=== PATIENT | female | born 1945 | race Caucasian/White ===

== ENCOUNTER 2023-12-22 13:17 | Observation (INO) | payer MEDICARE, SELFPAY ==
[2023-12-22] VITALS (19 sets, daily range): BP systolic 96–143; BP diastolic 52–90; PULSE 44–76; RESP 11–19; TEMP 36.7–37.2; O2SAT 94–99; BMI 32.4; BMI 31.8
--- NOTE | 2023-12-22 13:59 | EKG12_ITS ---
Test Reason : JACKELYN Blood Pressure : / mmHG Vent. Rate : 058 BPM Atrial Rate : 000 BPM P-R Int : 000 ms QRS Dur : 090 ms QT Int : 404 ms P-R-T Axes : 000 002 014 degrees QTc Int : 396 ms Junctional rhythm with Premature supraventricular complexes Nonspecific ST and T wave abnormality Abnormal ECG Confirmed by RAN ZENG, MARIETTA ([id number]), marketing editor HILARIA CORONADO ([id number]) on 12/25/2023 6:38:23 AM Referred By: ILAN Confirmed By:GRACIELA TONG MD
--- NOTE | 2023-12-22 14:05 | RAD_ITS ---
STUDY: X-RAY CHEST REASON FOR EXAM: Female, 78 years old. Chest pain TECHNIQUE: Single AP portable view of the chest. COMPARISON: None. FINDINGS: EKG electrodes are seen. There is elevation of the right hemidiaphragm. The lungs are clear. There is no demonstrated pleural abnormality. Normal size heart. Calcified bilateral hilar lymph nodes. Normal visualized pulmonary arteries. There is atherosclerotic tortuosity of the aortic arch and descending thoracic aorta. There are diffuse degenerative changes of the visualized thoracic spine. Normal visualized ribs, clavicles, and shoulders. There is no demonstrated abnormality of the visualized soft tissue structures of the upper abdomen. RAD/Chest 1 View (Portable) IMPRESSION: No acute abnormality is seen. Electronically Signed: Laron Rosado MD at 15:04 EDT ,
[2023-12-22 14:08] LABS: Absolute Lymphocyte Count 1.33 X10^3/uL (0.83-4.51); Absolute Neutrophil Count 6.8 X10^3/uL (2.0-7.7); Basophil# 0.06 X10^3/uL; Basophil% 0.7 % (0-1); Eosinophil# 0.12 X10^3/uL; Eosinophils% 1.3 % (0-5); Hematocrit 38.6 % (37-47); Hemoglobin 12.6 g/dL (12.0-15.0); Lymphocyte # 1.33 X10^3/ul (0.83-4.51); Lymphocyte % 14.8 % (19-41); Mean Corp Hgb Conc 32.6 g/dL (32-36); Mean Corpuscular Volume 95.1 fL (81-99); Mean Platelet Vol. 11.7 fl (6.2-12.0); Monocyte# 0.62 X10^3/uL; Monocyte% 6.9 % (0-10); NRBC Flagged by Analyzer 0 % (0-5); Neutrophil # 6.81 X10^3/uL (2.7-7.7); Neutrophil % 75.7 % (47-70); Platelet Count 220 K/mm3 (150-450); RBC Distribution Width SD 45.1 fl (35.1-43.9); Red Blood Count 4.06 M/mm3 (4.2-5.4)
--- NOTE | 2023-12-22 14:21 | ED.VIS.CHEST ---
HPI History of Present Illness Chief Complaint: Chest Pain Informant: patient Onset/Context/Timing Onset: Today Activity at onset: sudden Timing: Continuous Quality: Positive for Pressure Location: Left Parasternal and - (Neck, right shoulder, right arm) Worsened By: Exertion Relieved By: Rest Associated Symptoms: Positive for Nausea, Dyspnea, Lightheadedness and Palpitations; Negative for Vomiting, Diaphoresis, Cough, Fever or Acid Reflux Narrative Narrative: Patient presents with chest pain that began today. Patient states she felt her heart was racing. Patient states she sat down and the racing stopped. Patient states that when she got up from a seated position, she started having some pressure to her left chest. Patient states she developed pain in her neck and right shoulder. Patient states it starts going down her right arm. Patient admits to some nausea and shortness of breath. Patient denies any vomiting. Patient states she felt lightheaded. Patient denies any fevers or chills. Patient denies any cough. Patient states her pain and pressure is worse with any walking or movement. 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 HTN (hypertension) Diabetes Home Medications ?Medication ?Instructions ?Recorded ?Last Taken ?Type lisinopril 20 1 tab PO DAILY 12/22/23 Unknown History mg-hydrochlorothiazide 12.5 mg tablet metoprolol succinate PO 12/22/23 Unknown History Allergy/AdvReac Type Severity Reaction Status Date / Time No Known Allergies Allergy Verified 12/22/23 13:21 Surgical History Hx of cholecystectomy H/O: hysterectomy Social History Smoking Status: Never smoker ROS ROS ED Constitutional Constitutional ED: Denies chills or fever(s) Eyes Eyes: Denies blurry vision or change in vision ENT ENT ED: Denies rhinorrhea or sore throat Cardiovascular Cardiovascular: Reports as per HPI, chest pain, palpitations and racing heartbeat Respiratory/Chest Respiratory/Chest: Reports dyspnea; Denies cough Gastrointestinal Gastrointestinal: Reports nausea; Denies vomiting Genitourinary Genitourinary ED: Denies dysuria or hematuria Musculoskeletal Musculoskeletal: Reports back pain and neck pain Integumentary Reports rash; Denies abscess Neurologic Neurologic: Reports headache(s) and weakness Allergic/Immunologic Allergic/Immunologic ED: Denies mouth swelling or urticaria EXAM Physical Exam Const Vital Signs: 12/22/23 13:17 12/22/23 13:24 12/22/23 14:00 Temperature 98.1 F Temperature Source Temporal Pulse Rate 51 L Respiratory Rate 14 Respiratory Effort Normal Non-Labored Blood Pressure 141/84 H 143/65 H Blood Pressure Mean 103 85 Pulse Ox 98 Oxygen Delivery Method Room Air 12/22/23 14:01 12/22/23 14:01 12/22/23 14:15 Temperature Temperature Source Pulse Rate 62 68 Respiratory Rate 17 13 Respiratory Effort Blood Pressure 123/90 H Blood Pressure Mean 99 Pulse Ox 97 95 98 Oxygen Delivery Method Room Air 12/22/23 14:17 12/22/23 14:30 12/22/23 14:38 Temperature Temperature Source Pulse Rate 60 56 L 52 L Respiratory Rate 12 14 Respiratory Effort Blood Pressure 135/73 H 135/73 H 135/73 H Blood Pressure Mean 93 88 Pulse Ox 98 98 Oxygen Delivery Method 12/22/23 14:45 12/22/23 15:00 12/22/23 15:00 Temperature Temperature Source Pulse Rate 65 60 48 L Respiratory Rate 14 12 12 Respiratory Effort Blood Pressure 103/53 L 96/63 96/63 Blood Pressure Mean 69 74 75 Pulse Ox 97 98 97 Oxygen Delivery Method 12/22/23 15:16 12/22/23 15:32 12/22/23 15:45 Temperature Temperature Source Pulse Rate 48 L 47 L 51 L Respiratory Rate 19 H 15 11 L Respiratory Effort Blood Pressure 109/78 100/58 L 119/70 Blood Pressure Mean 89 72 85 Pulse Ox 97 98 Oxygen Delivery Method 12/22/23 16:00 12/22/23 17:00 12/22/23 18:00 Temperature Temperature Source Pulse Rate 48 L 59 L 44 L Respiratory Rate 16 19 H 16 Respiratory Effort Blood Pressure 119/70 123/72 H 109/68 Blood Pressure Mean 86 87 81 Pulse Ox 97 99 96 Oxygen Delivery Method Room Air Room Air Positive well nourished and well developed General Appearance ED: well developed HEENT Reports moist mucous membranes Neck supple and no JVD Resp normal respiratory effort and clear to auscultation bilaterally Cardio regular rate and regular rhythm Rhythm: abnormal rhythm ectopic beats GI soft to palpation, non-tender and non-distended Neuro oriented x3, CN's II-XII intact bilaterally and no sensory deficits noted Sensorium / Orientation: awake and alert Motor Exam: strength 5/5 throughout Psych mental status grossly normal Skin no rashes or lesions noted Heart Score History: Moderately Suspicious ECG: Nonspecific Repolarization Age: >/= 65 years Risk Factors: >/= 3 Risk Factors or History of CAD Troponin: </= Normal Limit Score: 6 MDM MDM MDM Narrative Medical decision making narrative: Differential diagnosis includes cardiac dysrhythmia, cardiac ischemia, pneumonia, pneumothorax, pulmonary embolism, electrolyte abnormality, musculoskeletal pain, and anxiety. EKG will be obtained to assess for cardiac dysrhythmia and cardiac ischemia. Chest x-ray will be obtained to assess for pneumonia and pneumothorax. CBC will be obtained to assess for leukocytosis and anemia. Basic metabolic profile will be obtained to assess for electrolyte abnormality and renal function. High-sensitivity troponin will be obtained to assess for cardiac ischemia. D-dimer will be obtained to assess for pulmonary embolism. 2-hour repeat high-sensitivity troponin will be obtained to assess for ongoing cardiac ischemia. Lab Data Attestation: I reviewed the patient's lab results. Lab results narrative: CBC was reviewed and was within normal limits. Basic metabolic profile was reviewed. BUN was slightly elevated at 27. The remainder was within normal limits. Initial high-sensitivity troponin was reviewed and was normal at 39. D-dimer was reviewed and was elevated at 0.93. 2-hour repeat high-sensitivity troponin was reviewed and was normal at 30. Labs: Laboratory Results - last 24 hr 12/22/23 12/22/23 12/22/23 13:20 14:25 16:15 WBC 9.0 RBC 4.06 L Hgb 12.6 Hct 38.6 MCV 95.1 MCH 31.0 MCHC 32.6 RDW Std Deviation 45.1 H RDW Coeff of Faisal 13.0 Plt Count 220 MPV 11.7 Immature Gran % (Auto) 0.600 Neut % (Auto) 75.7 H Lymph % (Auto) 14.8 L Andrews % (Auto) 6.9 Eos % (Auto) 1.3 Baso % (Auto) 0.7 Absolute Neuts (auto) 6.8 Absolute Lymphs (auto) 1.33 Nucleated RBC % 0 D-Dimer Quant (PE/DVT) 0.93 H* Sodium 137 Potassium 3.5 Chloride 104 Carbon Dioxide 27.0 Anion Gap 6 BUN 27 H Creatinine 1.00 Estim Creat Clear Calc 42.39 Est GFR (MDRD) Af Amer 69 Est GFR (MDRD) Non-Af 57 L BUN/Creatinine Ratio 27.1 H Glucose 111 H Calcium 10.2 H Troponin I High Sens 39 30 Radiography Chest X-Ray - ED: 1 View, Read by ED Physician, Read by Radiologist and No Acute Disease CTA PE Study: No Evidence of PE and No Evidence of Dissection Diagnostic Testing: Clinical Impression(s) from Imaging Studies Chest X-Ray 12/22/23 14:05 IMPRESSION: No acute abnormality is seen. Electronically Signed: aLron Rosado MD at 15:04 EDT , Chest CTA 12/22/23 15:41 IMPRESSION: 1. Negative CTA chest examination, without a demonstrated pulmonary embolism or arterial dissection. Electronically Signed: Nicholas Celeste MD at 16:21 EDT , Portable 1 view chest x-ray was obtained. On my independent interpretation, lung pedraza are clear. There is normal cardiac silhouette. Bony thorax is normal. There is no acute process noted. Radiologist also interpreted the x-ray and agrees. CT of the chest was obtained due to the elevated D-dimer. There is no evidence of pulmonary embolism or aortic dissection. There is no acute process noted. This was interpreted by the radiologist was also independently reviewed by myself. EKG Initial EKG: Attestation: I personally reviewed and interpreted this EKG as follows: Interpretation: Sinus Rhythm (With PACs with a rate of 58) and Non-Specific ST Changes Comments: EKG was obtained. On my independent interpretation, it shows a normal sinus rhythm with a rate of 58. There are PACs noted. TN interval, QRS interval, and QTc intervals are within normal limits. [place] is normal. There are nonspecific ST-T wave changes noted. Prior EKG tracings: not available for review Prior: No Prior Treatment and Re-Evaluation :: Patient was given aspirin and 1 sublingual nitroglycerin tablet. Patient states the nitroglycerin did not change her back pain at all. Patient was given a dose of fentanyl. Patient was advised of her findings. Patient has a HEART score of 6. Patient states she has not had a stress test or cardiac evaluation in probably 20 years. Because of this, I recommended admission to the hospital for further evaluation. Patient and family are agreeable with this. Case was discussed with the hospitalist. He will admit the patient for observation. Discharge Plan Triage Chief Complaint: Chest Pain ED Provider: Sonido Kraus Dx/Rx/DC Orders Clinical Impression: Chest pain, Hypertension, Low back pain Prescriptions: No Action lisinopril-hydrochlorothiazide 20-12.5 mg tablet 1 tab PO DAILY metoprolol succinate PO Primary Care Provider: Joel Casey Referrals: Joel Casey MD [Primary Care Provider] - Print Language: Amharic Disposition Disposition: Acute Care Hospital [facility]
[2023-12-22 14:25] LABS: Anion Gap 6 (5-15); BUN 27 mg/dL (7-18); BUN/Creat Ratio 27.1 RATIO (10-20); Calcium,Total 10.2 mg/dL (8.5-10.1); Chloride 104 mmol/L (98-107); EST Glomerular Filtration Rate 57 mL/min (>60); Est Glom Filt Rate - Afr Amer 69 mL/min (>60); Estimated Creatinine Clearance 42.39 ml/min; Glucose 111 mg/dL (74-106); Potassium 3.5 mmol/L (3.5-5.1); Sodium Level 137 mmol/L (136-145); Troponin-I HS (w/2H Reflex) 39 pg/mL (3.0-54.0)
[2023-12-22] MEDS: Aspirin 81 MG TAB.CHEW 324 MG PO (14:34)
[2023-12-22] MEDS: Nitroglycerin SL (ED/IMG/CATH) 0.4 MG TABLET SL (14:38)
[2023-12-22 14:54] LABS: D-Dimer Quantitative (DVT/PE) 0.93 FEU/ug/m (0.27-0.49)
--- NOTE | 2023-12-22 15:41 | CT_ITS ---
STUDY: CTA CHEST REASON FOR EXAM: Female, 78 years old. Elevated D-dimer RADIATION DOSAGE (If Supplied By Facility): CTDIvol = ( 11.15 ) mGy, DLP = ( 383.09 ) mGycm TECHNIQUE: The examination was performed with the intravenous administration of IV 100mL Isovue-370. Post-processing of the angiographic images was performed, with multiplanar reformation and 3D reconstruction. Individualized dose optimization techniques were used for this CT. COMPARISON: Chest x-ray dated December 22, 2023 FINDINGS: No consolidation or pleural effusion is present. Normal enhancement of the main pulmonary artery and right and left pulmonary arteries. Normal enhancement of the bilateral peripheral pulmonary arteries. There is no demonstrated pulmonary embolism. Normal thoracic aorta and visualized great vessels. There is no demonstrated aortic dissection. Normal heart and pericardium. There are calcifications of the coronary arteries. Normal mediastinum. Normal hilar regions. Normal visualized trachea and bronchi. The lungs are well expanded. Mild diffuse interstitial fibrosis/thickening is present throughout both lungs. Normal pleura. Normal chest wall structures. There are degenerative changes of thoracic spine. Included upper abdomen: Punctate calcifications are seen throughout the liver and spleen. The remaining structures are unremarkable. A small hiatal hernia is present. CT/CTA Chest W/WO Contrast IMPRESSION: 1. Negative CTA chest examination, without a demonstrated pulmonary embolism or arterial dissection. Electronically Signed: Nicholas Celeste MD at 16:21 EDT ,
[2023-12-22 16:04] LABS: Reflex Troponin-HS? (from REC) Y
[2023-12-22 16:53] LABS: Troponin-I HS 30 pg/mL (3.0-54.0)
[2023-12-22] MEDS: fentaNYL 100 MCG/2 ML Ampul 50 MCG IV (17:42)
--- NOTE | 2023-12-22 19:44 | EKG12_ITS ---
Test Reason : CP Blood Pressure : / mmHG Vent. Rate : 046 BPM Atrial Rate : 000 BPM P-R Int : 000 ms QRS Dur : 078 ms QT Int : 422 ms P-R-T Axes : 000 003 017 degrees QTc Int : 369 ms Junctional rhythm Abnormal ECG When compared with ECG of 22-DEC-2023 13:21, MANUAL COMPARISON REQUIRED, DATA IS UNCONFIRMED Confirmed by RAN ZENG, MARIETTA ([id number]), editor school photograph HILARIA CORONADO ([id number]) on 12/25/2023 7:19:43 AM Referred By: Confirmed By:GRACIELA TONG MD
--- NOTE | 2023-12-22 20:04 | HP.PCM.HOS_ITS ---
HPI - General General Date of Admission: 12/22/23 Date of Service: 12/22/23 Chief Complaint: Chest pain, neck pain right shoulder pain. HPI Narrative JOHNNY STUART, is a 78 F came to ED with ongoing pain for last couple days. She stated that she has not been feeling well since December 03. She had low-grade fever, muscle aches and pain felt like viral infection from December 03 to . After that, she also had right shoulder pain, neck pain and she attributes that she might have slept wrong or positional pain/musculoskeletal pain last 2-3. She denies chronic cervical radiculitis/myelopathy or lumbar spondylosis pain. Today she felt left-sided parasternal chest pressure felt like a smothering or tightness and felt like could not breathe that lasted for about 5 to 10 minutes. She also felt mild nausea but denies lightheadedness or syncope or vertigo. After that she sat on the recliner and chest tightness resolved. She had similar left-sided chest pressure about 20 years ago and had complete workup including echo stress and cardiac cath. She was told that she has vasospasm during cardiac cath procedure that got relieved with the medication. Family history: She stated her both parents, grandparent and sister has history of coronary artery disease/CHF. She is not a smoker. In ED, blood pressure on lower side but not hypotensive. 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 HTN (hypertension) Diabetes Home Medications ?Medication ?Instructions ?Recorded ?Last Taken ?Type lisinopril 20 1 tab PO DAILY 12/22/23 Unknown History mg-hydrochlorothiazide 12.5 mg tablet metoprolol succinate PO 12/22/23 Unknown History metoprolol tartrate 50 mg tablet 50 mg PO BID 12/22/23 Unknown History pravastatin 40 mg tablet 40 mg PO DAILY 12/22/23 Unknown History Allergy/AdvReac Type Severity Reaction Status Date / Time No Known Allergies Allergy Verified 12/22/23 13:21 Surgical History Hx of cholecystectomy H/O: hysterectomy Social History Smoking Status: Never smoker ROS ROS Narrative Constitutional: Reports fatigue and weakness since beginning of December. No fever. HEENT: Reports systems reviewed and no addt'l complaints, except as documented Respiratory/Chest: No chronic lung disease or COPD. Rest as described in HPI CVS: As described in HPI Gastrointestinal: Denies coffee ground emesis, hematemesis or vomiting Genitourinary: Denies burning urination or new urinary tract symptoms Musculoskeletal: Recent musculoskeletal pain as described in HPI Neurologic: Denies seizure-like symptoms. No acute or strokelike symptoms skin: No ulcer. No rash Endocrinology: Reports systems reviewed and no addt'l complaints, except as documented Hematologic/Lymphatic: Reports systems reviewed and no addt'l complaints, except as documented Rest 14 ROS are negative except as mentioned in HPI Vital Signs Vital Signs Vital Signs: 12/22/23 13:17 12/22/23 13:24 12/22/23 14:00 Temperature 98.1 F Temperature Source Temporal Pulse Rate 51 L Respiratory Rate 14 Respiratory Effort Normal Non-Labored Blood Pressure 141/84 H 143/65 H Blood Pressure Mean 103 85 Blood Pressure Source Blood Pressure Position Blood Pressure Location Pulse Ox 98 Oxygen Delivery Method Room Air 12/22/23 14:01 12/22/23 14:01 12/22/23 14:15 Temperature Temperature Source Pulse Rate 62 68 Respiratory Rate 17 13 Respiratory Effort Blood Pressure 123/90 H Blood Pressure Mean 99 Blood Pressure Source Blood Pressure Position Blood Pressure Location Pulse Ox 97 95 98 Oxygen Delivery Method Room Air 12/22/23 14:17 12/22/23 14:30 12/22/23 14:38 Temperature Temperature Source Pulse Rate 60 56 L 52 L Respiratory Rate 12 14 Respiratory Effort Blood Pressure 135/73 H 135/73 H 135/73 H Blood Pressure Mean 93 88 Blood Pressure Source Blood Pressure Position Blood Pressure Location Pulse Ox 98 98 Oxygen Delivery Method 12/22/23 14:45 12/22/23 15:00 12/22/23 15:00 Temperature Temperature Source Pulse Rate 65 60 48 L Respiratory Rate 14 12 12 Respiratory Effort Blood Pressure 103/53 L 96/63 96/63 Blood Pressure Mean 69 74 75 Blood Pressure Source Blood Pressure Position Blood Pressure Location Pulse Ox 97 98 97 Oxygen Delivery Method 12/22/23 15:16 12/22/23 15:32 12/22/23 15:45 Temperature Temperature Source Pulse Rate 48 L 47 L 51 L Respiratory Rate 19 H 15 11 L Respiratory Effort Blood Pressure 109/78 100/58 L 119/70 Blood Pressure Mean 89 72 85 Blood Pressure Source Blood Pressure Position Blood Pressure Location Pulse Ox 97 98 Oxygen Delivery Method 12/22/23 16:00 12/22/23 17:00 12/22/23 18:00 Temperature Temperature Source Pulse Rate 48 L 59 L 44 L Respiratory Rate 16 19 H 16 Respiratory Effort Blood Pressure 119/70 123/72 H 109/68 Blood Pressure Mean 86 87 81 Blood Pressure Source Blood Pressure Position Blood Pressure Location Pulse Ox 97 99 96 Oxygen Delivery Method Room Air Room Air 12/22/23 18:29 12/22/23 18:36 12/22/23 20:02 Temperature 99.0 F 99.0 F 98.2 F Temperature Source Oral Oral Pulse Rate 76 76 48 L Respiratory Rate 18 18 16 Respiratory Effort Blood Pressure 138/67 H 138/67 H 98/52 L Blood Pressure Mean 90 90 67 Blood Pressure Source Monitor Blood Pressure Position Semi-Fowlers Blood Pressure Location Left Arm Pulse Ox 94 94 97 Oxygen Delivery Method Room Air Room Air Weight Weight: 171 lb 11.841 oz Body Mass Index (BMI) 32.4 Results Lab / Micro Data 12/22/23 13:20 12/22/23 13:20 Labs: Laboratory Results - last 24 hr 12/22/23 13:20: WBC 9.0, RBC 4.06 L, Hgb 12.6, Hct 38.6, MCV 95.1, MCH 31.0, MCHC 32.6, RDW Std Deviation 45.1 H, RDW Coeff of Faisal 13.0, Plt Count 220, MPV 11.7, Immature Gran % (Auto) 0.600, Neut % (Auto) 75.7 H, Lymph % (Auto) 14.8 L, [place] % (Auto) 6.9, Eos % (Auto) 1.3, Baso % (Auto) 0.7, Absolute Neuts (auto) 6.8, Absolute Lymphs (auto) 1.33, Nucleated RBC % 0, Sodium 137, Potassium 3.5, Chloride 104, Carbon Dioxide 27.0, Anion Gap 6, BUN 27 H, Creatinine 1.00, Estim Creat Clear Calc 42.39, Est GFR (MDRD) Af Amer 69, Est GFR (MDRD) Non-Af 57 L, B UN/Creatinine Ratio 27.1 H, Glucose 111 H, Calcium 10.2 H, Troponin I High Sens 39 12/22/23 14:25: D-Dimer Quant (PE/DVT) 0.93 H* 12/22/23 16:15: Phosphorus Cancelled, Magnesium Cancelled, Troponin I High Sens 30 Imaging Radiology Impression Chest X-Ray 12/22/23 14:05 IMPRESSION: No acute abnormality is seen. Electronically Signed: Laron Rosado MD at 15:04 EDT , Chest CTA 12/22/23 15:41 IMPRESSION: 1. Negative CTA chest examination, without a demonstrated pulmonary embolism or arterial dissection. Electronically Signed: Nicholas Celeste MD at 16:21 EDT , Assessment & Plan Assessment/Plan (1) Chest pain: PLAN: Plan This 78-year-old female came to ED for further evaluation of chest pressure/tightness. 1. Atypical chest pain with history of vasospastic angina about 20 years ago: Patient is being admitted in PCU. Heart score is 6 but BONITA risk score 2. Patient has a history of vasospastic angina as described in HPI about 20 years ago. Not on baby aspirin at home. Patient had aspirin 324 mg ED and 81 mg daily a.m. continued. First 2 troponins are negative. Cycle cardiac enzymes. TSH tomorrow AM. On home medication Metoprolol succinate dose unclear Pharmacological nuclear cardiac stress test tomorrow AM. 2. Recent viral-like illness, musculoskeletal pain: Patient had chest x-ray and then CTA chest which did not show acute abnormality. COVID RSV and flu PCR test ordered. Hypertension: Patient blood pressure on lower side in the low 100s therefore hold lisinopril HCTZ. Monitor BP. 3. Dyslipidemia: On pravastatin continued. Fasting profile tomorrow AM. 4. DM type II, diet controlled: Glucose is 111. A1c tomorrow AM. 5. DVT prophylaxis, moderate risk: Lovenox 40 Mg daily. Living will/advanced directive/end of life care: Patient does have living will or advanced directive. After discussion of benefits/risks procedures involved with full code, DNR CC arrest and DNR CC, the patient opted for DNR CC arrest with no intubation. She stated when the time comes she wants to go. Patient doesn't want artificial life support including intubation, tube feed, ventilator and/chest compression, central venous catheter, vasopressor and DC shock if needed Total time spent in [id number] encounter in discussion of advanced directive 17 minutes. Laboratory Results 12/22/23 13:20: WBC 9.0, RBC 4.06 L, Hgb 12.6, Hct 38.6, MCV 95.1, MCH 31.0, MCHC 32.6, RDW Std Deviation 45.1 H, RDW Coeff of Faisal 13.0, Plt Count 220, MPV 11.7, Immature Gran % (Auto) 0.600, Neut % (Auto) 75.7 H, Lymph % (Auto) 14.8 L, [place] % (Auto) 6.9, Eos % (Auto) 1.3, Baso % (Auto) 0.7, Absolute Neuts (auto) 6.8, Absolute Lymphs (auto) 1.33, Nucleated RBC % 0, Sodium 137, Potassium 3.5, Chloride 104, Carbon Dioxide 27.0, Anion Gap 6, BUN 27 H, Creatinine 1.00, Estim Creat Clear Calc 42.39, Est GFR (MDRD) Af Amer 69, Est GFR (MDRD) Non-Af 57 L, B UN/Creatinine Ratio 27.1 H, Glucose 111 H, Calcium 10.2 H, Troponin I High Sens 39 12/22/23 14:25: D-Dimer Quant (PE/DVT) 0.93 H* 12/22/23 16:15:Troponin I High Sens 30 Clinical Impression(s) from Imaging Studies Chest X-Ray 12/22/23 14:05 IMPRESSION: No acute abnormality is seen. Chest CTA 12/22/23 15:41 IMPRESSION: 1. Negative CTA chest examination, without a demonstrated pulmonary embolism or arterial dissection. Electronically Signed: Nicholas Celeste MD at 16:21 EDT , Charges/Coding Visit Charges Inpatient E&M: 28673 Init Hosp L3 Procedures Hospitalists Procedures: [id number] Advncd Care Plan 30 Min
[2023-12-22] MEDS: 0.9% Normal Saline (1000mL) 1,000 ML 100 ML IV (20:07)
[2023-12-22 20:34] LABS: Bedside Glucose 106 mg/dL (74-106)
[2023-12-22] MEDS: Enoxaparin 40 MG/0.4 ML Syringe SC (20:43)
[2023-12-22] MEDS: Acetaminophen 500 MG Tablet 1000 MG PO (20:43)
[2023-12-22 20:51] LABS: Troponin-I HS 24 pg/mL (3.0-54.0)
[2023-12-23 00:10] VITALS: BP 122/99; PULSE 50; RESP 18; TEMP 36.8; O2SAT 98
[2023-12-23] MEDS: oxyCODONE 5 MG Tablet PO ×2 (03:29→09:06)
--- NOTE | 2023-12-23 04:46 | PCM.HOSP.N ---
Hospitalist Note Bradycardia -Admission EKG showed junctional rhythm -Heart rates intermittently throughout the night in the 30s -Patient asymptomatic -Continue to hold beta-christiano -A.m. TSH is pending -Stress test ordered -Cardiology consult placed for further assistance--text sent to Dr. Rodriguez
--- NOTE | 2023-12-23 05:55 | EKG12_ITS ---
Test Reason : AM EKG Blood Pressure : / mmHG Vent. Rate : 058 BPM Atrial Rate : 035 BPM P-R Int : 176 ms QRS Dur : 078 ms QT Int : 412 ms P-R-T Axes : 000 010 015 degrees QTc Int : 404 ms Marked sinus bradycardia with Premature atrial complexes OCCASIONAL JUNCTIONAL BEATS NONSPECIFIC ST ABNORMALITY Abnormal ECG When compared with ECG of 22-DEC-2023 20:23, MANUAL COMPARISON REQUIRED, DATA IS UNCONFIRMED Confirmed by RAN ZENG, MARIETTA ([id number]), technical editor HILARIA CORONADO ([id number]) on 12/25/2023 7:19:00 AM Referred By: Confirmed By:GRACIELA TONG MD
[2023-12-23 06:16] LABS: Absolute Lymphocyte Count 1.13 X10^3/uL (0.83-4.51); Basophil# 0.05 X10^3/uL; Basophil% 0.7 % (0-1); Eosinophils% 1.5 % (0-5); Hematocrit 34.3 % (37-47); Hemoglobin 11.3 g/dL (12.0-15.0); Lymphocyte # 1.13 X10^3/ul (0.83-4.51); Lymphocyte % 16.5 % (19-41); Mean Corp Hgb Conc 32.9 g/dL (32-36); Mean Corpuscular Volume 94.2 fL (81-99); Mean Platelet Vol. 11.4 fl (6.2-12.0); Monocyte# 0.51 X10^3/uL; Monocyte% 7.4 % (0-10); NRBC Flagged by Analyzer 0 % (0-5); Neutrophil # 5.02 X10^3/uL (2.7-7.7); Neutrophil % 73.3 % (47-70); Platelet Count 187 K/mm3 (150-450); RBC Distribution Width SD 44.7 fl (35.1-43.9); Red Blood Count 3.64 M/mm3 (4.2-5.4); White Blood Count 6.9 K/mm3 (4.4-11.0)
[2023-12-23 06:27] VITALS: BP 114/53; PULSE 56; RESP 16; TEMP 36.8; O2SAT 95
[2023-12-23] MEDS: Aspirin E.C. 81 MG Tablet PO (06:34)
[2023-12-23] MEDS: Acetaminophen 500 MG Tablet 1000 MG PO ×2 (06:34→14:07)
[2023-12-23 06:53] LABS: Anion Gap 5 (5-15); BUN 22 mg/dL (7-18); BUN/Creat Ratio 26.9 RATIO (10-20); Calcium,Total 9.2 mg/dL (8.5-10.1); Chloride 107 mmol/L (98-107); Cholesterol 155 mg/dL (200); Creatinine, Serum 0.82 mg/dL (0.55-1.02); EST Glomerular Filtration Rate 71 mL/min (>60); Est Glom Filt Rate - Afr Amer 86 mL/min (>60); Estimated Creatinine Clearance 51.24 ml/min; Glucose 123 mg/dL (74-106); High Density Lipoprotein 20 mg/dL; Potassium 3.4 mmol/L (3.5-5.1); Sodium Level 137 mmol/L (136-145); Triglycerides 299 mg/dL; Very Low Density Lipoprotein 60 mg/dL (5-40)
--- NOTE | 2023-12-23 07:47 | PN.HOSP_ITS ---
Reason for Visit Reason for Visit: Diagnoses Chest pain, unspecified (12/22/23) Subjective Subjective Patient is 78-year-old female admitted with chest pain Objective Data Objective Data Vital Signs: Vital Signs Temp Pulse Resp BP Pulse Ox O2 Del Method 98.2 F 56 L 16 114/53 L 95 Room Air 12/23/23 06:27 12/23/23 06:27 12/23/23 06:27 12/23/23 06:27 12/23/23 06:27 12/23/23 06:27 Oxygen Delivery Method Room Air Weight: 76.6 kg Body Mass Index (BMI) 31.8 Intake & Output: Intake and Output for Last 24 Hours 12/21/23 12/22/23 12/23/23 23:59 23:59 23:59 Intake Total 1000 / 1000 Balance 1000 / 1000 Lab / Micro Data 12/23/23 05:54 12/23/23 05:54 Labs: Laboratory Results - last 24 hr 12/22/23 13:20: WBC 9.0, RBC 4.06 L, Hgb 12.6, Hct 38.6, MCV 95.1, MCH 31.0, MCHC 32.6, RDW Std Deviation 45.1 H, RDW Coeff of Faisal 13.0, Plt Count 220, MPV 11.7, Immature Gran % (Auto) 0.600, Neut % (Auto) 75.7 H, Lymph % (Auto) 14.8 L, [place] % (Auto) 6.9, Eos % (Auto) 1.3, Baso % (Auto) 0.7, Absolute Neuts (auto) 6.8, Absolute Lymphs (auto) 1.33, Nucleated RBC % 0, Sodium 137, Potassium 3.5, Chloride 104, Carbon Dioxide 27.0, Anion Gap 6, BUN 27 H, Creatinine 1.00, Estim Creat Clear Calc 42.39, Est GFR (MDRD) Af Amer 69, Est GFR (MDRD) Non-Af 57 L, B UN/Creatinine Ratio 27.1 H, Glucose 111 H, Calcium 10.2 H, Troponin I High Sens 39 12/22/23 14:25: D-Dimer Quant (PE/DVT) 0.93 H* 12/22/23 16:15: Phosphorus Cancelled, Magnesium Cancelled, Troponin I High Sens 30 12/22/23 20:14: POC Glucose 106 12/22/23 20:20: Troponin I High Sens 24 12/23/23 05:54: WBC 6.9, RBC 3.64 L, Hgb 11.3 L, Hct 34.3 L, MCV 94.2, MCH 31.0, MCHC 32.9, RDW Std Deviation 44.7 H, RDW Coeff of Faisal 13.0, Plt Count 187, MPV 11.4, Immature Gran % (Auto) 0.600, Neut % (Auto) 73.3 H, Lymph % (Auto) 16.5 L, [place] % (Auto) 7.4, Eos % (Auto) 1.5, Baso % (Auto) 0.7, Absolute Neuts (auto) 5.0, Absolute Lymphs (auto) 1.13, Nucleated RBC % 0, Sodium 137, Potassium 3.4 L , Chloride 107, Carbon Dioxide 25.0, Anion Gap 5, BUN 22 H, Creatinine 0.82, Estim Creat Clear Calc 51.24, Est GFR (MDRD) Af Amer 86, Est GFR (MDRD) Non-Af 71, BUN/Creatinine Ratio 26.9 H, Glucose 123 H, Calcium 9.2, Triglycerides 299 H , Cholesterol 155, LDL Cholesterol 75, VLDL Cholesterol 60 H, HDL Cholesterol 20 L, TSH 2.770 Micro: Microbiology 12/22/23 20:40 Mucosa - Nasopharyngeal SARS-CoV-2, Influenza & RSV (PCR) - Final Radiography Diagnostic Testing: Radiology Impression Chest X-Ray 12/22/23 14:05 IMPRESSION: No acute abnormality is seen. Electronically Signed: Laron Rosado MD at 15:04 EDT , Chest CTA 12/22/23 15:41 IMPRESSION: 1. Negative CTA chest examination, without a demonstrated pulmonary embolism or arterial dissection. Electronically Signed: Nicholas Celeste MD at 16:21 EDT , Physical Exam Narrative GENERAL: cooperative HEENT: Atraumatic; normocephalic EYES; Anicteric, Normal Conjunctiva NECK; supple, normal thyroid, RESPIRATORY: Diminished to auscultation CARDIOVASCULAR: Regular S1 S2, GI: soft, normoactive bowel sounds, : No Renal angle tenderness; EXTREMITIES: No edema, no clubbing, MUSCULOSKELETAL: no muscle wasting NEURO: Awake; no lateralizing signs. SKIN: No Rash PSYCH; Flat affect Assessment & Plan Assessment/Plan (1) Chest pain: PLAN: Plan Patient is an 78-year-old lady admitted with chest pain 1. Chest Pain Placed on a monitored bed; AR was ruled out with serial cardiac enzymes patient undergo subsequent evaluation with a nuclear stress test 2. Hypertension ? Blood pressure controlled, home medications lisinopril and HCTZ held given relatively low blood pressure we will continue with monitoring ? Patient is on metoprolol 50 mg p.o. twice daily dose was decreased to 25 mg p.o. twice daily after discussing with Dr. Rodriguez with cardiology 3. Tachybradycardia syndrome ? Patient discharged on beta-blockers as well as a 30-day event monitor with plans for patient to follow-up with cardiology as outpatient 4. Dyslipidemia ?Patient is on statin therapy, continued at home dose 5. Diabetes mellitus type 2 ? Managed with diet 6. Neck pain ? Ordered CT of the cervical spine without contrast for evaluation 7. DVT prophylaxis ? On enoxaparin
[2023-12-23 08:57] VITALS: BP 120/58; PULSE 57; RESP 18; TEMP 36.4; O2SAT 97
--- NOTE | 2023-12-23 09:03 | EKG12_ITS ---
Test Reason : BACK PAIN Blood Pressure : / mmHG Vent. Rate : 049 BPM Atrial Rate : 032 BPM P-R Int : 000 ms QRS Dur : 078 ms QT Int : 452 ms P-R-T Axes : 000 017 027 degrees QTc Int : 408 ms SINUS RHYTHM WITH PERIODS OF JUNCTIONAL BEATS DUE TO INTERMITTENT SINUS PAUSES Otherwise normal ECG When compared with ECG of 23-DEC-2023 05:28, MANUAL COMPARISON REQUIRED, DATA IS UNCONFIRMED Confirmed by RAN ZENG, MARIETTA ([id number]), manuscript editor HILARIA CORONADO ([id number]) on 12/25/2023 7:18:23 AM Referred By: Confirmed By:GRACIELA TONG MD
--- NOTE | 2023-12-23 11:13 | STRESSREP_ITS ---
Stress Test Report Date: 12/23/2023 Procedure: Pharmacologic stress nuclear imaging study Indications: Chest pain Consent: Per the patient Procedure: The patient underwent pharmacologic (Regadenoson) evaluation with a peak heart rate of 82 beats per minute (58%predicted maximal heart rate) and a peak blood pressure of 122/52 mmHg. The baseline ECG demonstrated normal sinus rhythm. EKG during lexiscan infusion revealed no significant ischemic changes. EKG post infusion revealed no significant ischemic changes [There were no significant cardiac dysrhythmias pretest, during pharmacologic infusion, or recovery]. [There was no complaint of chest discomfort during pharmacologic infusion or recovery]. The examination was discontinued secondary to completion of protocol. Impression: 1. Lexiscan stress test test is negative for Lexiscan infusion induced EKG changes of ischemia. 2. Lexiscan stress test test is negative for Lexiscan infusion induced chest pain. 3. Results of the nuclear portion of the test is as below Myocardial perfusion imaging study: Technique: The patient was injected with 12 millicuries of technetium 99m Cardiolite and subsequently rest SPECT Cardiolite nuclear imaging was obtained in the horizontal long, vertical long, and short axis views. The patient underwent pharmacologic [Regadenoson 0.4mg] evaluation. Please see above for details. The patient was injected with 35 millicuries of technetium 99m Cardiolite and subsequently stress SPECT Cardiolite nuclear imaging was obtained in the horizon abebe long, vertical long, and short axis views. A gated Cardiolite study at peak stress was obtained. Interpretation: Rest and stress SPECT Cardiolite nuclear imaging status post realignment, norm alization, and attenuation correction demonstrate overall normal myocardial radioisotope uptake. There is no evidence of significant ischemia or infarction. Gated images reveal no significant regional wall motion abnormalities. The reported LVEF is greater than 70%. Impression: 1. There is no evidence of significant ischemia or infarction. 2. Estimated ejection fraction is greater than 70%. This note was generated with [employer] (mytaxi)ation software. It may contain incorrect words, spelling, and punctuation that were not noted in checking the note before signing.
--- NOTE | 2023-12-23 12:34 | CT_ITS ---
STUDY: CT CERVICAL SPINE WITHOUT CONTRAST REASON FOR EXAM: Female, 78 years old. Neck pain RADIATION DOSAGE (If Supplied By Facility): CTDIvol = ( 18.57 ) mGy, DLP = ( 386.17 ) mGycm TECHNIQUE: High resolution transaxial imaging was performed without contrast material. Sagittal and coronal images were reconstructed. Individualized dose optimization techniques were used for this CT. COMPARISON: None FINDINGS: Normal craniovertebral junction. There are degenerative changes of the anterior atlantoaxial articulation. Normal odontoid process. There is straightening of the normal cervical lordosis. Normal vertebral bodies and posterior osseous elements. C2-3: Normal endplates. Normal disc height and morphology. Normal central canal and intervertebral neuroforamina. C3-4: Normal endplates. Normal disc height and morphology. Normal central canal and intervertebral neuroforamina. C4-5: Mild degree of disc space narrowing. Posterior spondylosis causing minimal deformity of the central cervical sac. C5-6: Moderate degree of disc space narrowing. Spondylosis. Uncovertebral arthrosis. Bilateral neural foraminal stenosis right worse than left. C6-7: Moderate degree of disc space narrowing. Uncovertebral arthrosis. A moderate degree of right neural foraminal stenosis. C7-T1: Normal endplates. Normal disc height and morphology. Normal central canal and intervertebral neuroforamina. Atherosclerotic calcification of the carotid bifurcations bilaterally. CT/Spine Cervical without Contras IMPRESSION: Multilevel degenerative changes, as described above. Electronically Signed: Laron Rosado MD at 13:43 EDT ,
--- NOTE | 2023-12-23 13:08 | CON.PCM.CA_ITS ---
Assessment & Plan Assessment/Plan (1) Chest pain: QUALIFIERS: Chest pain type: unspecified Qualified Code(s): R07.9 - Chest pain, unspecified PLAN: Stress test is negative for ischemia. She has had coronary angiography about 20 years back which was negative for significant CAD. No further cardiac workup is required at this time. She could get her 2D echo as an outpatient. (2) Tachycardia-bradycardia syndrome: PLAN: I recommend restarting metoprolol at 25 mg p.o. twice daily. If patient has any symptoms of tachycardia or bradycardia she may end up needing a permanent pacemaker. From a cardiac standpoint she could be discharged home with either a 48-hour Holter or 30-day event monitor. She should follow-up with cardiology service as an outpatient. HPI Consult Data Date of Consult: 12/23/23 HPI Narrative Reason for Consultation: Chest pain, junctional rhythm, atrial tachycardia HPI Narrative: JOHNNY STUART, is a 78 F who presents after an episode of palpitations associated with chest pressure. This lasted very short time. Patient had a viral infection that lasted about 10 days starting from December 03. Shortly after that she developed neck pain radiating to the right arm. It was worse when she lied down on her back or on her right side. It was better with Tylenol. No relation to exertion. Patient came to the emergency room for the neck and arm pain mainly. Her troponin was negative and she had a stress test this morning that was negative for ischemia. Her telemetry revealed sinus rhythm with junctional beats at times. She has been on metoprolol 50 mg p.o. twice daily for several years. The metoprolol was held after admission. She has had episodes of PACs and short runs of atrial tachycardia. Patient states that she saw a esthetician makeup artist about 20 years back. She had ischemic workup at that time which was negative. She was told that she has extra beats and also missed beats. She denies any syncopal episodes. She states that she has had mild episodes of lightheadedness that last for a very short time. Telemetry reveals episodes of atrial tachycardia, short runs of junctional rhythm with the longest R-R interval being 2.4 seconds. Review of systems: All systems reviewed. All else is negative except that in the [facility] Medical History Cardiac arrhythmia due to coronary artery spasm HTN (hypertension) Diabetes Home Medications ?Medication ?Instructions ?Recorded ?Last Taken ?Type pravastatin 40 mg tablet 40 mg PO QHS cholesterol 12/22/23 Unknown History acetaminophen 500 mg tablet 1,000 mg (2 x 500 mg) PO Q8 #0 tabs 12/23/23 Unknown Rx metoprolol tartrate 25 mg tablet 25 mg PO BID 30 days #60 tabs 12/23/23 Unknown Rx Allergy/AdvReac Type Severity Reaction Status Date / Time No Known Allergies Allergy Verified 12/22/23 13:21 Surgical History Hx of cholecystectomy H/O: hysterectomy Social History Smoking Status: Never smoker Physical Exam Const alert HEENT normocephalic Eyes no scleral icterus Resp normal respiratory effort and clear to auscultation bilaterally Cardio regular rate Extremity no pedal edema Skin no rashes or lesions noted Psych mental status grossly normal Risk Stratification Risk Stratification Applicable: No Charges/Coding Visit Charges Inpatient E&M: 80666 Init Hosp L2 Objective Data Vital Signs: Vital Signs Temp Pulse Resp BP Pulse Ox O2 Del Method 97.6 F L 57 L 18 120/58 L 97 Room Air 12/23/23 08:57 12/23/23 08:57 12/23/23 08:57 12/23/23 08:57 12/23/23 08:57 12/23/23 09:15 Oxygen Delivery Method Room Air Weight: 168 lb 13.985 oz Body Mass Index (BMI) 31.8 Intake & Output: Intake and Output for Last 24 Hours 12/21/23 12/22/23 12/23/23 23:59 23:59 23:59 Intake Total 1000 / 1000 Balance 1000 / 1000 Lab / Micro Data 12/23/23 05:54 12/23/23 05:54 Labs: Laboratory Results - last 24 hr 12/22/23 13:20: WBC 9.0, RBC 4.06 L, Hgb 12.6, Hct 38.6, MCV 95.1, MCH 31.0, MCHC 32.6, RDW Std Deviation 45.1 H, RDW Coeff of Faisal 13.0, Plt Count 220, MPV 11.7, Immature Gran % (Auto) 0.600, Neut % (Auto) 75.7 H, Lymph % (Auto) 14.8 L, [place] % (Auto) 6.9, Eos % (Auto) 1.3, Baso % (Auto) 0.7, Absolute Neuts (auto) 6.8, Absolute Lymphs (auto) 1.33, Nucleated RBC % 0, Sodium 137, Potassium 3.5, Chloride 104, Carbon Dioxide 27.0, Anion Gap 6, BUN 27 H, Creatinine 1.00, Estim Creat Clear Calc 42.39, Est GFR (MDRD) Af Amer 69, Est GFR (MDRD) Non-Af 57 L, B UN/Creatinine Ratio 27.1 H, Glucose 111 H, Calcium 10.2 H, Troponin I High Sens 39 12/22/23 14:25: D-Dimer Quant (PE/DVT) 0.93 H* 12/22/23 16:15: Phosphorus Cancelled, Magnesium Cancelled, Troponin I High Sens 30 12/22/23 20:14: POC Glucose 106 12/22/23 20:20: Troponin I High Sens 24 12/23/23 05:54: WBC 6.9, RBC 3.64 L, Hgb 11.3 L, Hct 34.3 L, MCV 94.2, MCH 31.0, MCHC 32.9, RDW Std Deviation 44.7 H, RDW Coeff of Faisal 13.0, Plt Count 187, MPV 11.4, Immature Gran % (Auto) 0.600, Neut % (Auto) 73.3 H, Lymph % (Auto) 16.5 L, [place] % (Auto) 7.4, Eos % (Auto) 1.5, Baso % (Auto) 0.7, Absolute Neuts (auto) 5.0, Absolute Lymphs (auto) 1.13, Nucleated RBC % 0, Sodium 137, Potassium 3.4 L , Chloride 107, Carbon Dioxide 25.0, Anion Gap 5, BUN 22 H, Creatinine 0.82, Estim Creat Clear Calc 51.24, Est GFR (MDRD) Af Amer 86, Est GFR (MDRD) Non-Af 71, BUN/Creatinine Ratio 26.9 H, Glucose 123 H, Calcium 9.2, Triglycerides 299 H , Cholesterol 155, LDL Cholesterol 75, VLDL Cholesterol 60 H, HDL Cholesterol 20 L, TSH 2.770 Micro: Microbiology 12/22/23 20:40 Mucosa - Nasopharyngeal SARS-CoV-2, Influenza & RSV (PCR) - Final Cardiology Labs/Tests 12/22/23 13:20: WBC 9.0, RBC 4.06 L, Hgb 12.6, Hct 38.6, MCV 95.1, MCH 31.0, MCHC 32.6, Plt Count 220, MPV 11.7, Immature Gran % (Auto) 0.600, Neut % (Auto) 75.7 H, Lymph % (Auto) 14.8 L, [place] % (Auto) 6.9, Eos % (Auto) 1.3, Baso % (Auto) 0.7, Absolute Neuts (auto) 6.8, Nucleated RBC % 0, Sodium 137, Potassium 3.5, Chloride 104, Carbon Dioxide 27.0, Anion Gap 6, BUN 27 H, Creatinine 1.00, Est GFR (MDRD) Af Amer 69, Est GFR (MDRD) Non-Af 57 L, BUN/Creatinine Ratio 27.1 H, Glucose 111 H, Calcium 10.2 H 12/22/23 14:25: D-Dimer Quant (PE/DVT) 0.93 H* 12/22/23 16:15: Phosphorus Cancelled, Magnesium Cancelled 12/23/23 05:54: WBC 6.9, RBC 3.64 L, Hgb 11.3 L, Hct 34.3 L, MCV 94.2, MCH 31.0, MCHC 32.9, Plt Count 187, MPV 11.4, Immature Gran % (Auto) 0.600, Neut % (Auto) 73.3 H, Lymph % (Auto) 16.5 L, [place] % (Auto) 7.4, Eos % (Auto) 1.5, Baso % (Auto) 0.7, Absolute Neuts (auto) 5.0, Nucleated RBC % 0, Sodium 137, Potassium 3.4 L, Chloride 107, Carbon Dioxide 25.0, Anion Gap 5, BUN 22 H, Creatinine 0.82, Est GFR (MDRD) Af Amer 86, Est GFR (MDRD) Non-Af 71, BUN/Creatinine Ratio 26.9 H, Glucose 123 H, Calcium 9.2, Triglycerides 299 H, Cholesterol 155, LDL Cholesterol 75, VLDL Cholesterol 60 H, HDL Cholesterol 20 L Rhythm: EKG: ECHO: Stress Test: Cardiac Cath: PCI: CT Surgery: Holter monitor: EPS: PPM: CXR: Chest CT Scan: Radiography Diagnostic Testing: Radiology Impression Chest X-Ray 12/22/23 14:05 IMPRESSION: No acute abnormality is seen. Electronically Signed: Laron Rosado MD at 15:04 EDT , Chest CTA 12/22/23 15:41 IMPRESSION: 1. Negative CTA chest examination, without a demonstrated pulmonary embolism or arterial dissection. Electronically Signed: Nicholas Celeste MD at 16:21 EDT ,
[2023-12-23 14:02] VITALS: BP 115/56; PULSE 64; RESP 16; TEMP 36.7; O2SAT 95
[2023-12-23 14:07] VITALS: BP 115/56; PULSE 64
[2023-12-23] MEDS: Metoprolol Tartrate 25 MG Tablet PO (14:07)
[2023-12-23] MEDS: 0.9% Saline Lock 10 ML Syringe IV (14:08)
--- NOTE | 2023-12-23 14:30 | PCM.DC.SUM ---
Providers Date of Admission: 12/22/23 Date of Discharge: 12/23/23 Primary Care Physician: Dr. Joel Casey MD Consultations 12/23/23 04:43 Consult: Cardiology Routine Consulting Provider: Josef Rodriguez Reason for Consult: bradycardia EMERGENT Consult: No Notified: Yes Date Notified: 12/23/23 Time Notified: 04:43 Method of Notification: Text Reason For Visit: CHEST PAIN Diagnosis Discharge Diagnosis (1) Chest pain: Status: Acute Code(s): R07.9 - Chest pain, unspecified Qualifiers: Chest pain type: unspecified Qualified Code(s): R07.9 - Chest pain, unspecified (2) Tachycardia-bradycardia syndrome: Status: Acute Code(s): I49.5 - Sick sinus syndrome Plan Patient is an 78-year-old lady admitted with chest pain 1. Chest Pain Placed on a monitored bed; VT was ruled out with serial cardiac enzymes patient undergo subsequent evaluation with a nuclear stress test 2. Hypertension ? Blood pressure controlled, home medications lisinopril and HCTZ held given relatively low blood pressure we will continue with monitoring ? Patient is on metoprolol 50 mg p.o. twice daily dose was decreased to 25 mg p.o. twice daily after discussing with Dr. Rodriguez with cardiology 3. Tachybradycardia syndrome ? Patient discharged on beta-blockers as well as a 30-day event monitor with plans for patient to follow-up with cardiology as outpatient 4. Dyslipidemia ?Patient is on statin therapy, continued at home dose 5. Diabetes mellitus type 2 ? Managed with diet 6. Neck pain ? Ordered CT of the cervical spine without contrast for evaluation ? CT of the neck demonstrated multiple level degenerative disc disease patient discharged on Tylenol 7. DVT prophylaxis ? On enoxaparin Medications at Discharge Home Medications pravastatin 40 mg tablet 40 mg PO QHS cholesterol 12/22/23 acetaminophen 500 mg tablet 1,000 mg (2 x 500 mg) PO Q8 #0 tabs 12/23/23 metoprolol tartrate 25 mg tablet 25 mg PO BID 30 days #60 tabs 12/23/23 Hospital Course Summary of Care Provided Minutes Spent on Discharge: 35 Physical Exam Narrative GENERAL: cooperative HEENT: Atraumatic; normocephalic EYES; Anicteric, Normal Conjunctiva NECK; supple, normal thyroid, RESPIRATORY: Diminished to auscultation CARDIOVASCULAR: Regular S1 S2, GI: soft, normoactive bowel sounds, : No Renal angle tenderness; EXTREMITIES: No edema, no clubbing, MUSCULOSKELETAL: no muscle wasting NEURO: Awake; no lateralizing signs. SKIN: No Rash PSYCH; Flat affect Weight / BMI Weight Weight: 76.6 kg Body Mass Index (BMI) 31.8 ABG / Lab / Microbiology Data 12/23/23 05:54 12/23/23 05:54 Laboratory: Laboratory Results - last 24 hr 12/22/23 14:25: D-Dimer Quant (PE/DVT) 0.93 H* 12/22/23 16:15: Phosphorus Cancelled, Magnesium Cancelled, Troponin I High Sens 30 12/22/23 20:14: POC Glucose 106 12/22/23 20:20: Troponin I High Sens 24 12/23/23 05:54: WBC 6.9, RBC 3.64 L, Hgb 11.3 L, Hct 34.3 L, MCV 94.2, MCH 31.0, MCHC 32.9, RDW Std Deviation 44.7 H, RDW Coeff of Faisal 13.0, Plt Count 187, MPV 11.4, Immature Gran % (Auto) 0.600, Neut % (Auto) 73.3 H, Lymph % (Auto) 16.5 L, [place] % (Auto) 7.4, Eos % (Auto) 1.5, Baso % (Auto) 0.7, Absolute Neuts (auto) 5.0, Absolute Lymphs (auto) 1.13, Nucleated RBC % 0, Sodium 137, Potassium 3.4 L, Chloride 107, Carbon Dioxide 25.0, Anion Gap 5, BUN 22 H, Creatinine 0.82, Estim Creat Clear Calc 51.24, Est GFR (MDRD) Af Amer 86, Est GFR (MDRD) Non-Af 71, BUN/Creatinine Ratio 26.9 H, Glucose 123 H, Calcium 9.2, Triglycerides 299 H, Cholesterol 155, LDL Cholesterol 75, VLDL Cholesterol 60 H, HDL Cholesterol 20 L, TSH 2.770 Microbiology: Microbiology 12/22/23 20:40 Mucosa - Nasopharyngeal SARS-CoV-2, Influenza & RSV (PCR) - Final Radiography Diagnostic Testing: Radiology Impression Chest X-Ray 12/22/23 14:05 IMPRESSION: No acute abnormality is seen. Electronically Signed: Laron Rosado MD at 15:04 EDT , Chest CTA 12/22/23 15:41 IMPRESSION: 1. Negative CTA chest examination, without a demonstrated pulmonary embolism or arterial dissection. Electronically Signed: Nicholas Celeste MD at 16:21 EDT , Cervical Spine CT 12/23/23 12:34 IMPRESSION: Multilevel degenerative changes, as described above. Electronically Signed: Laron Rosado MD at 13:43 EDT , D/C Instructions Discharge Diet: No restrictions Discharge Activity: Return to Normal Activity Call your doctor if you observe: Fever of 101 or Higher, Shortness of breath, Fainting spells and Chest pain Meaningful Use Info Meaningful Use Meaningful Use Diagnoses (Choose all that apply): None applicable Ischemic Stroke Statin Dosing Therapy Reference: STATIN DOSE THERAPY REFERENCE: * Patients > 75 years receive moderate or high dose statin therapy. * Patients 75 years or YOUNGER should receive HIGH intensity statin dose unless contraindicated. You will be required to document reason for non-treatment if statin daily dose does not meet guidelines. HIGH DOSE STATIN THERAPY DAILY Atorvastatin > than or = to 40 mg Rosuvastatin > than or = to 20 mg Amlodipine + Atorvastatin > than or = to 2.5/40 mg Ezetimibe + Simvastatin 10/80 mg Simvastatin 80mg Discharge Plan Admission Admit Date/Time: 12/22/23 18:19 Attending Provider: Danyel Payan Primary Care Provider: Joel Casey Consulting Providers: Josef Rodriguez; Clark Skaggs Discharge Orders/Prescriptions Prescriptions: New acetaminophen 500 mg Tablet 1,000 mg PO Q8 Qty: 0 0RF metoprolol tartrate 25 mg Tablet 25 mg PO BID 30 Days Qty: 60 0RF Continued pravastatin 40 mg tablet 40 mg PO QHS Discontinued lisinopril-hydrochlorothiazide 20-12.5 mg tablet 1 tab PO DAILY metoprolol tartrate 50 mg tablet 50 mg PO BID Other Ambulatory Orders: 30 Day Event Recorder Preventi (Urgent) Timeframe: 1 Day Facility: [facility] - Location: Cardiovascular Services Ordered By: Dr. Danyel Payan Referrals / Follow Up: Joel Casey MD [Primary Care Provider] - Josef Rodriguez MD [Med Staff - Active Staff] - Within 2 Weeks Disposition Disposition (needs filled in before D/C Order can be placed): Home, Self Care Charges/Coding Visit Charges Inpatient E&M: 41682 Disch Hosp >30min
--- NOTE | 2023-12-23 15:09 | CASEMGMT ---
Patient has order for discharge. RN CM in to discuss needs at discharge. Patient denies needs or help at discharge. Patient had no further questions or concerns.
[2023-12-23 15:48] VITALS: BP 101/80; PULSE 57; RESP 16; TEMP 36.4; O2SAT 98
--- NOTE | 2023-12-23 16:13 | PHA.DC.MC.R ---
Pharmacy [facility] Pharmacy Service has performed discharge medication reconciliation and counseling for this patient. 1. ACETAMINOPHEN 1000MG PO Q8 2. METOPROLOL DECREASED TO 25MG 3. STOP LISINOPRIL/HCTZ The patient's discharge medication list was reviewed for discrepancies and discrepancies were resolved. The patient was counseled on the following discharge medications and changes in medications for homegoing were reviewed. The Reason for Use, instructions for use, and potential side effects were reviewed for all new medications. The patient's questions regarding all of their medications were answered. The patient was able to verbally demonstrate an understanding of their discharge medications. Medications at Discharge Home Medications pravastatin 40 mg tablet 40 mg PO QHS cholesterol 12/22/23 acetaminophen 500 mg tablet 1,000 mg (2 x 500 mg) PO Q8 #0 tabs 12/23/23 metoprolol tartrate 25 mg tablet 25 mg PO BID 30 days #60 tabs 12/23/23
== END 2023-12-23 14:33 | disposition home or self-care (01) ==
LOC: ED 18:16 → PCU 18:39
PROVIDERS: Admitting Provider Internal Medicine; Emergency Provider Emergency Medicine; PCP Family Medicine; Visit Provider Internal Medicine
DX: R07.89 Other chest pain (principal); I49.5 Sick sinus syndrome; E11.9 Type 2 diabetes mellitus without complications; I10 Essential (primary) hypertension; M54.50 Low back pain, unspecified; M54.2 Cervicalgia; M25.511 Pain in right shoulder; R11.0 Nausea; Z79.899 Other long term (current) drug therapy; Z82.49 Family history of ischemic heart disease and other diseases of the circulatory system; E78.5 Hyperlipidemia, unspecified
CPT/HCPCS: 36415; 71045; 71275; 72125; 78452; 80048; 80061; 82962; 84443; 84484; 85025; 85379; 87631; 93005; 93017; 94668; 96361; 96372; 96374; 99221; 99285; A9500; J7030; Q9967; A4216; G0378; J2785

== ENCOUNTER 2023-12-26 18:05 | Emergency (ER) | payer MEDICARE, SELFPAY ==
[2023-12-26] VITALS (9 sets, daily range): BP systolic 120–161; BP diastolic 57–79; PULSE 28–93; RESP 15–18; TEMP 36.4–36.6; O2SAT 95–98; BMI 33.5
--- NOTE | 2023-12-26 18:17 | EKG12_ITS ---
Test Reason : Blood Pressure : / mmHG Vent. Rate : 080 BPM Atrial Rate : 080 BPM P-R Int : 128 ms QRS Dur : 080 ms QT Int : 384 ms P-R-T Axes : 124 -12 017 degrees QTc Int : 442 ms Unusual P axis, possible ectopic atrial rhythm Low voltage QRS Cannot rule out Anterior infarct , age undetermined Abnormal ECG Confirmed by Lazaro Beach ([id number]), health editor MARINA GILL ([id number]) on 12/28/2023 10:34:11 AM Referred By: ILAN Confirmed By:Lazaro Beach
--- NOTE | 2023-12-26 18:55 | EDS_ITS ---
HPI History of Present Illness Chief Complaint: General Illness Informant: patient Onset/Context/Timing Onset: Today Context: Sudden Onset Timing: Continuous Quality: Fatigue Location: Generalized Worsened by: Exertion Relieved by: Nothing Narrative Narrative: Patient presents with feeling fatigued that began rather suddenly today. Patient states she felt like the energy went out of her body. Patient states she has been feeling tired ever since. Patient states it is worse with walking across the room. Patient states that she has some shortness of breath with exertion. Patient was admitted here recently for cardiac workup because of pain in her neck and right arm. Patient states that her medications were changed and she was taken off one of her medications and started on Tylenol. Patient denies any fevers or chills. Patient denies any cough. 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 HTN (hypertension) Diabetes Home Medications ?Medication ?Instructions ?Recorded ?Last Taken ?Type pravastatin 40 mg tablet 40 mg PO QHS cholesterol 12/22/23 Unknown History metoprolol tartrate 25 mg tablet 25 mg PO BID 30 days #60 tabs 12/23/23 Unknown Rx acetaminophen 500 mg tablet 1,000 mg PO Q8 PRN fever or pain 12/26/23 Unknown History Allergy/AdvReac Type Severity Reaction Status Date / Time No Known Allergies Allergy Verified 12/26/23 18:05 Surgical History Hx of cholecystectomy H/O: hysterectomy Social History Smoking Status: Never smoker ROS ROS ED Constitutional Constitutional ED: Denies chills or fever(s) Eyes Eyes: Denies blurry vision or change in vision ENT ENT ED: Denies rhinorrhea or sore throat Cardiovascular Cardiovascular: Denies chest pain or palpitations Respiratory/Chest Respiratory/Chest: Reports dyspnea; Denies cough Gastrointestinal Gastrointestinal: Denies nausea or vomiting Genitourinary Genitourinary ED: Denies dysuria or hematuria Musculoskeletal Musculoskeletal: Reports neck pain; Denies back pain Integumentary Denies abscess or rash Neurologic Neurologic: Reports headache(s) and weakness Allergic/Immunologic Allergic/Immunologic ED: Denies mouth swelling or urticaria EXAM Physical Exam Const Vital Signs: 12/26/23 18:05 12/26/23 19:43 12/26/23 20:12 Temperature 97.8 F Temperature Source Temporal Pulse Rate 93 45 L 40 L Respiratory Rate 18 18 Blood Pressure 124/65 H 161/79 H Blood Pressure Mean 84 106 Pulse Ox 98 98 Oxygen Delivery Method Room Air 12/26/23 20:34 12/26/23 20:35 12/26/23 21:35 Temperature Temperature Source Pulse Rate 28 L 51 L 39 L Respiratory Rate 16 16 17 Blood Pressure 120/73 125/65 H 133/57 H Blood Pressure Mean 88 85 82 Pulse Ox 98 95 95 Oxygen Delivery Method Room Air Room Air Room Air 12/26/23 22:00 Temperature Temperature Source Pulse Rate 47 L Respiratory Rate 17 Blood Pressure 133/57 H Blood Pressure Mean 82 Pulse Ox 97 Oxygen Delivery Method Room Air Positive well nourished and well developed General Appearance ED: well developed and NAD HEENT Reports moist mucous membranes Neck supple and no JVD Resp normal respiratory effort and clear to auscultation bilaterally Cardio regular rate and regular rhythm GI non-tender and non-distended Palpation: soft Extremity normal to inspection General Extremety ED: Negative for edema or tenderness General Extremity: Negative for edema Neuro oriented x3, CN's II-XII intact bilaterally and no sensory deficits noted Sensorium / Orientation: alert Motor Exam: strength 5/5 throughout and general weakness Psych mental status grossly normal MDM MDM MDM Narrative Medical decision making narrative: Differential diagnosis includes cardiac dysrhythmia, cardiac ischemia, electrolyte abnormality, pneumonia, viral illness, dehydration, and anxiety. EKG will be obtained to assess for cardiac dysrhythmia and cardiac ischemia. Chest x-ray will be obtained to assess for pneumonia and bronchitis. CBC will be obtained to assess for leukocytosis and anemia. Comprehensive metabolic p rofile will be obtained to assess for electrolyte abnormality and renal function. High-sensitivity troponin will be obtained to assess for cardiac ischemia. 2-hour repeat high-sensitivity troponin will be obtained to assess for ongoing cardiac ischemia. COVID-19, influenza, and RSV PCR will be obtained to assess for viral illness. Lab Data Attestation: I reviewed the patient's lab results. Lab results narrative: CBC was reviewed. There is a mild anemia with a hemoglobin of 11.9 and hematocrit 36.5. The remainder is within normal limits. Comprehensive metabolic profile was reviewed and was within normal limits. Initial high- sensitivity troponin was reviewed and was normal at 7. Urinalysis was reviewed. There are positive nitrates and leukocyte esterase of 500. There are 50-100 white blood cells and 1+ bacteria. There are 10-25 red blood cells noted. COVID-19 PCR was reviewed and was negative. Influenza PCR was reviewed and was negative for influenza A and influenza B. RSV PCR was reviewed and was negative. Labs: Laboratory Results - last 24 hr 12/26/23 12/26/23 18:30 20:30 WBC 6.5 RBC 3.80 L Hgb 11.9 L Hct 36.5 L MCV 96.1 MCH 31.3 MCHC 32.6 RDW Std Deviation 46.7 H RDW Coeff of Faisal 13.3 Plt Count 217 MPV 11.7 Immature Gran % (Auto) 0.500 Neut % (Auto) 66.3 Lymph % (Auto) 23.1 Lane % (Auto) 7.4 Eos % (Auto) 2.2 Baso % (Auto) 0.5 Absolute Neuts (auto) 4.3 Absolute Lymphs (auto) 1.50 Nucleated RBC % 0 Sodium 141 Potassium 3.8 Chloride 107 Carbon Dioxide 27.0 Anion Gap 7 BUN 17 Creatinine 0.86 Estim Creat Clear Calc 50.11 Est GFR (MDRD) Af Amer 82 Est GFR (MDRD) Non-Af 68 BUN/Creatinine Ratio 19.8 Glucose 113 H Calcium 9.9 Total Bilirubin 0.30 AST 37 ALT 38 Alkaline Phosphatase 93 Troponin I High Sens 7 Total Protein 6.5 Albumin 3.0 L Globulin 3.5 Albumin/Globulin Ratio 0.9 Urine Color Yellow Urine Clarity Sl. Cloudy Urine pH 6.0 Ur Specific [place] 1.020 Urine Protein 30 H Urine Glucose (UA) Normal Urine Ketones 5 H Urine Occult Blood 10 H Urine Nitrite Positive H Urine Bilirubin 1 H Urine Urobilinogen 1 H Ur Leukocyte Esterase 500 H Urine RBC 10-25 SEEN Urine WBC 50-100 SEEN Ur Squamous Epith Cells 0 SEEN Ur Renal Epithelial Cell 0-5 SEEN Urine Bacteria 1+ Urine Mucus 0 SEEN Radiography Chest X-Ray - ED: 1 View, Read by ED Physician, Read by Radiologist and No Acute Disease Diagnostic Testing: Clinical Impression(s) from Imaging Studies Chest X-Ray 12/26/23 19:15 IMPRESSION: 1. No evidence of acute cardiopulmonary process Electronically Signed: Evan Parra MD at 20:12 EDT , Portable 1 view chest x-ray was obtained. On my independent interpretation, jeanine ng pedraza are clear. There is normal cardiac silhouette. Bony thorax is normal. There is no acute process noted. Radiologist also interpreted the x- ray and agrees. EKG Initial EKG: Attestation: I personally reviewed and interpreted this EKG as follows: Interpretation: Sinus Rhythm (80) and Non-Specific ST Changes Comments: EKG was obtained. On my independent interpretation, it shows normal sinus rhythm with a rate of 80. PA interval was normal at 128 ms. QRS interval was normal at 80 ms. QTc interval was normal at 442 ms. There is borderline left axis deviation at -12. There is low voltage. There are nonspecific ST-T wave changes noted. This was unchanged compared to previous EKG dated 12/23/2023. Prior EKG tracings: available for review Prior: Unchanged (12/23/2023) Follow-up EKG: Attestation: I personally reviewed and interpreted this EKG as follows: Interpretation: Sinus Bradycardia (46) Comments: Repeat EKG was obtained. On my independent interpretation it shows sinus bradycardia with a rate of 46. There are multiple junctional escape beats noted. There are no acute ST or T wave changes noted. Treatment and Re-Evaluation :: While here in the emergency department, patient had episode of bradycardia and a brief episode of asystole. Patient was placed on pacer pads. Patient's heart rate improved spontaneously. Patient has had several over the episodes of bradycardia and prolonged pauses. Because of this, I recommended the patient get a pacemaker. Dr. Rubio is not available and the patient will need to be transferred to a different hospital for placement of the pacemaker. Patient and family were advised of the need for transfer. They requested [facility] in [place]. Case was discussed with Dr. Dupree. He accepted the patient to be transferred there. Discharge Plan Triage Chief Complaint: General Illness Other Complaint: Hypertension ED Provider: Sonido Kraus Dx/Rx/DC Orders Clinical Impression: Bradycardia with less than 30 beats per minute, Chest pain, Tachycardia- bradycardia syndrome Prescriptions: No Action pravastatin 40 mg tablet 40 mg PO QHS metoprolol tartrate 25 mg Tablet 25 mg PO BID 30 Days Qty: 60 0RF acetaminophen 500 mg Tablet 1,000 mg PO Q8 PRN (Reason: fever or pain) Primary Care Provider: Joel Casey Referrals: Joel Casey MD [Primary Care Provider] - Print Language: Indonesian Disposition Disposition: Acute Care Hospital Discharge Location: [facility]
--- NOTE | 2023-12-26 19:05 | EKG12_ITS ---
Test Reason : RHYTHM CHANGE Blood Pressure : / mmHG Vent. Rate : 046 BPM Atrial Rate : 000 BPM P-R Int : 000 ms QRS Dur : 078 ms QT Int : 446 ms P-R-T Axes : 000 -07 002 degrees QTc Int : 390 ms Marked Sinus Bradycardia with junctional escape Abnormal ECG Confirmed by Lazaro Beach ([id number]), newspaper photo editor MARINA GILL ([id number]) on 12/28/2023 10:31:26 AM Referred By: Confirmed By:Lazaro Beach
--- NOTE | 2023-12-26 19:15 | RAD_ITS ---
INDICATION: Chest pain EXAMINATION/TECHNIQUE: X-RAY - XR Chest 1 View COMPARISON: 12/22/2023 FINDINGS: LIFE-SUPPORT AND LINES: 1. None HEART AND VESSELS: The cardiac silhouette, pulmonary vasculature have normal appearance. No evidence of congestive failure. LUNGS AND PLEURAL SPACES: Lungs are clear. No focal infiltrate, consolidation or effusions. No evidence of pneumothorax. No pulmonary mass is noted. MEDIASTINUM AND HILAR REGIONS: No masses adenopathy noted. No areas of calcification. Visualized upper airway is normal in position. BONY ELEMENTS: No acute bony changes noted. RAD/Chest 1 View (Portable) IMPRESSION: 1. No evidence of acute cardiopulmonary process Electronically Signed: Evan Parra MD at 20:12 EDT ,
[2023-12-26 19:26] LABS: Absolute Neutrophil Count 4.3 X10^3/uL (2.0-7.7); Basophil# 0.03 X10^3/uL; Basophil% 0.5 % (0-1); Eosinophil# 0.14 X10^3/uL; Eosinophils% 2.2 % (0-5); Hematocrit 36.5 % (37-47); Hemoglobin 11.9 g/dL (12.0-15.0); Lymphocyte % 23.1 % (19-41); Mean Corp Hgb Conc 32.6 g/dL (32-36); Mean Corpuscular Hgb 31.3 pg (27.0-32.0); Mean Corpuscular Volume 96.1 fL (81-99); Mean Platelet Vol. 11.7 fl (6.2-12.0); Monocyte# 0.48 X10^3/uL; Monocyte% 7.4 % (0-10); NRBC Flagged by Analyzer 0 % (0-5); Neutrophil # 4.32 X10^3/uL (2.7-7.7); Neutrophil % 66.3 % (47-70); Platelet Count 217 K/mm3 (150-450); RBC Distribution Width CV 13.3 % (11.6-14.6); RBC Distribution Width SD 46.7 fl (35.1-43.9); White Blood Count 6.5 K/mm3 (4.4-11.0)
[2023-12-26 19:45] LABS: ALB/GLOB Ratio 0.9 RATIO (0.9-2.4); AST(SGOT) 37 U/L (15-37); Alanine Aminotransfer ALT/SGPT 38 U/L (13-56); Alkaline Phosphatase 93 U/L (45-117); Anion Gap 7 (5-15); BUN 17 mg/dL (7-18); BUN/Creat Ratio 19.8 RATIO (10-20); Calcium,Total 9.9 mg/dL (8.5-10.1); Chloride 107 mmol/L (98-107); Creatinine, Serum 0.86 mg/dL (0.55-1.02); EST Glomerular Filtration Rate 68 mL/min (>60); Est Glom Filt Rate - Afr Amer 82 mL/min (>60); Estimated Creatinine Clearance 50.11 ml/min; Globulin 3.5 g/dL (2.2-4.2); Glucose 113 mg/dL (74-106); Potassium 3.8 mmol/L (3.5-5.1); Protein, Total 6.5 g/dL (6.4-8.2); Sodium Level 141 mmol/L (136-145); Troponin-I HS (w/2H Reflex) 7 pg/mL (3.0-54.0)
[2023-12-26 20:39] LABS: Color, Urine Yellow (Yellow); Glucose, Dipstick Normal (Normal); Ketone-Dipstick 5 mg/dl (Negative); Leukocyte Esterase-Dipstick 500 /ul (Negative); Mucous, Urine 0 SEEN /hpf (<or=2+); Nitrite-Dipstick Positive (Negative); Occult Blood-Urine 10 /ul (Negative); Protein-Dipstick 30 mg/dl (Negative); Squamous Epithelial Cells - UA 0 SEEN /hpf (5-10); Urine Clarity Sl. Cloudy (Clear); Urine Urobilinogen 1 mg/dl (Normal)
[2023-12-26 20:43] LABS: Urine Bilirubin Dipstick 1 mg/dL (Negative)
[2023-12-26 20:50] LABS: Bacteria 1+ /hpf (None Seen); Red Blood Cells-Urine 10-25 SEEN /hpf (0-5); Renal Epithelial Cells 0-5 SEEN /hpf (0-5); White Blood Cells 50-100 SEEN /hpf (0-5)
[2023-12-26] MEDS: Ceftriaxone 1 GM/50 ML BAG IV (21:18)
[2023-12-26 21:23] LABS: Reflex Troponin-HS? (from REC) Y
[2023-12-26 22:43] LABS: Troponin-I HS 7 pg/mL (3.0-54.0)
[2023-12-27] VITALS: BP 121/95; PULSE 40; RESP 14; O2SAT 97
== END 2023-12-27 00:12 | disposition short-term general hospital (02) ==
PROVIDERS: Emergency Provider Emergency Medicine; PCP Family Medicine; Visit Provider Emergency Medicine
DX: I49.5 Sick sinus syndrome (principal); R06.02 Shortness of breath; I10 Essential (primary) hypertension; Z79.899 Other long term (current) drug therapy
CPT/HCPCS: 71045; 80053; 81001; 84484; 85025; 87077; 87086; 87088; 87186; 87631; 93005; 96365; 99285; J7050; A4216

== ENCOUNTER → 2024-01-07 | Outpatient (CLI) | payer MEDICARE, SELFPAY ==
--- NOTE | 2024-01-07 12:03 | EKG12_ITS ---
Test Reason : MEDICATION CHECK Blood Pressure : / mmHG Vent. Rate : 069 BPM Atrial Rate : 069 BPM P-R Int : 182 ms QRS Dur : 078 ms QT Int : 404 ms P-R-T Axes : 000 -04 040 degrees QTc Int : 432 ms Normal sinus rhythm Low voltage QRS Borderline ECG Confirmed by CHUNG ZENG, CALIXTO ([id number]), video news editor HILARIA CORONADO ([id number]) on 01/08/2024 10:48:15 AM Referred By: Ayanna Rankin Confirmed By:CALIXTO WILKES MD
== END | disposition home or self-care (01) ==
PROVIDERS: PCP Family Medicine; Referring Provider Nurse Practitioner Family; Visit Provider Nurse Practitioner Family
DX: I48.0 Paroxysmal atrial fibrillation (principal)
CPT/HCPCS: 93005

== ENCOUNTER → 2024-01-14 | Outpatient (CLI) | payer MEDICARE, SELFPAY ==
--- NOTE | 2024-01-14 11:56 | EKG12_ITS ---
Test Reason : WEEKLY EKG Blood Pressure : / mmHG Vent. Rate : 065 BPM Atrial Rate : 065 BPM P-R Int : 186 ms QRS Dur : 082 ms QT Int : 434 ms P-R-T Axes : 064 -07 017 degrees QTc Int : 451 ms Normal sinus rhythm Normal ECG Confirmed by CHUNG ZENG, CALIXTO ([id number]), subeditor MARINA GILL ([id number]) on 01/19/2024 2:05:39 PM Referred By: Ayanna Rankin Confirmed By:CALIXTO WILKES MD
== END | disposition home or self-care (01) ==
PROVIDERS: PCP Family Medicine; Referring Provider Nurse Practitioner Family; Visit Provider Nurse Practitioner Family
DX: I48.0 Paroxysmal atrial fibrillation (principal)
CPT/HCPCS: 93005

== ENCOUNTER → 2024-01-21 | Outpatient (CLI) | payer MEDICARE, SELFPAY ==
--- NOTE | 2024-01-21 11:57 | EKG12_ITS ---
Test Reason : MEDICATION CHECK Blood Pressure : / mmHG Vent. Rate : 062 BPM Atrial Rate : 062 BPM P-R Int : 188 ms QRS Dur : 078 ms QT Int : 418 ms P-R-T Axes : 014 002 023 degrees QTc Int : 424 ms Normal sinus rhythm Normal ECG Confirmed by Lazaro Beach ([id number]), editor farm journal MARINA GILL ([id number]) on 01/25/2024 10:18:22 AM Referred By: Ayanna Rankin Confirmed By:Lazaro Beach
== END | disposition home or self-care (01) ==
LOC: PSN 11:56
PROVIDERS: PCP Family Medicine; Referring Provider Nurse Practitioner Family; Visit Provider Nurse Practitioner Family
DX: I48.0 Paroxysmal atrial fibrillation (principal)
CPT/HCPCS: 93005

== ENCOUNTER 2024-01-25 13:24 | Emergency (ER) | payer MEDICARE, SELFPAY ==
[2024-01-25 13:25] VITALS: BP 179/83; PULSE 81; RESP 18; TEMP 36.3; O2SAT 93; BMI 32.0
[2024-01-25 15:48] VITALS: BP 171/71; PULSE 33; RESP 18; O2SAT 95
[2024-01-25 17:00] VITALS: BP 178/72; PULSE 80; RESP 18; O2SAT 96
--- NOTE | 2024-01-25 18:04 | ED.VIS.GI ---
HPI HPI - GI History of Present Illness Chief Complaint: GI Bleed Narrative Narrative: 78-year-old female presents with rectal bleeding that began today. She has past medical history of atrial fibrillation on Xarelto, but only started a month ago. Additionally, while she states she has history of hemorrhoids, she states that they have never bled. She denies any nausea or vomiting, no hematemesis, denies other bleeding diathesis. Upon arrival to the emergency department, she states she felt a little lightheaded and perhaps short of breath, but this was because she is unsure of what is going on with her rectal bleeding. She relates history that she had a bowel movement that was soft today, then a larger amount of bright red blood was in the toilet. She went to sit in her recliner and noticed that her recliner was wet as well. She returned to the bathroom, to clean herself up, and reports that she was still having rectal bleeding with blood dripping on the floor. While she thinks that it has improved significantly, she is concerned about where the bleeding originated. She denies any abdominal pain, no other symptoms currently. She states she feels fine. 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 HTN (hypertension) Diabetes Home Medications ?Medication ?Instructions ?Recorded ?Last Taken ?Type pravastatin 40 mg tablet 40 mg PO QHS cholesterol 12/22/23 Unknown History metoprolol tartrate 25 mg tablet 25 mg PO BID 30 days #60 tabs 12/23/23 Unknown Rx acetaminophen 500 mg tablet 1,000 mg PO Q8 PRN fever or pain 12/26/23 Unknown History hydrocortisone 2.5 % topical cream 1 applic [place] DAILY PRN hemorrhoids 01/25/24 Unknown Rx with perineal applicator #30 grams (Anusol-HC) Allergy/AdvReac Type Severity Reaction Status Date / Time No Known Allergies Allergy Verified 01/25/24 13:25 Surgical History Hx of cholecystectomy H/O: hysterectomy Social History Smoking Status: Never smoker ROS ROS ED ROS Narrative ROS positive for rectal bleeding. No current chest pain, shortness of breath, but may feel generally weak. Denies other bleeding diathesis, no hematemesis, no nausea or vomiting. EXAM Physical Exam Narrative Exam Narrative: Afebrile. Vital signs noted. Regular rate and rhythm. Lungs clear to auscultation bilaterally. Abdomen soft nontender with normal active bowel sounds. Neurological examination nonfocal and nonlateralizing. Skin examination shows no evidence of pallor, no subconjunctival pallor or central cyanosis. Chaperoned rectal examination/anoscopy will be performed. Const Vital Signs: 01/25/24 13:25 01/25/24 15:48 01/25/24 17:00 Temperature 97.3 F L Temperature Source Temporal Pulse Rate 81 33 L 80 Respiratory Rate 18 18 18 Blood Pressure 179/83 H 171/71 H 178/72 H Blood Pressure Mean 115 104 107 Pulse Ox 93 95 96 Oxygen Delivery Method Room Air Room Air Room Air 01/25/24 18:49 Temperature Temperature Source Pulse Rate 58 L Respiratory Rate Blood Pressure 152/65 H Blood Pressure Mean 94 Pulse Ox Oxygen Delivery Method MDM MDM MDM Narrative Medical decision making narrative: Differential diagnosis includes but not limited to diverticular bleeding versus AV malformation versus internal hemorrhoid versus external hemorrhoid. She will be told to hold her Xarelto for the next 1 to 2 days and anoscopy at the bedside will be performed. On further history, she states that she has not had colonoscopy in years and she has history of polyps that were removed. I reviewed her laboratory work and she has normal white count of 6.7, hemoglobin normal at 12.3 with platelet count normal at 212. CMP is remarkable for an elevated BUN of 21 which I think is nonspecific and normal creatinine of 0.90. I do not feel that this is indicative of an upper GI bleed as history and physical does not support this. LFTs are grossly unremarkable. Chaperoned anoscopy did show an external hemorrhoid that was excoriated at 12:00 with evidence of prior bleeding and dried blood perirectally. Anoscope was inserted and there is no evidence of bleeding above the scope or any active bleeding. She did have internal hemorrhoid as well. I reviewed the radiology report of the CT of the abdomen and pelvis and there is no evidence of diverticulitis or acute process or noted mass. At this point in time, she was able to ambulate to the bathroom without difficulty. I do feel that her rectal bleeding was most likely from the external hemorrhoid. She was told to hold her blood thinner for the next 2 to 3 days and she was written a prescription for Anusol HC cream to apply daily. I do not feel that she requires admission for GI bleeding as there was no blood noted on anoscopy, no blood above the scope. Return instructions to the emergency department were reviewed. Disposition is discharged home in stable condition. History & Record Review Discussion w/independent historian: Patient Lab Data Attestation: I reviewed the patient's lab results. Labs: Laboratory Results - last 24 hr 01/25/24 18:30 WBC 6.7 RBC 3.96 L Hgb 12.3 Hct 38.2 MCV 96.5 MCH 31.1 MCHC 32.2 RDW Std Deviation 46.2 H RDW Coeff of Faisal 13.0 Plt Count 212 MPV 10.6 Immature Gran % (Auto) 0.100 Neut % (Auto) 52.8 Lymph % (Auto) 33.6 [place] % (Auto) 10.1 H Eos % (Auto) 2.7 Baso % (Auto) 0.7 Absolute Neuts (auto) 3.5 Absolute Lymphs (auto) 2.26 Nucleated RBC % 0 Sodium 139 Potassium 3.9 Chloride 106 Carbon Dioxide 29.0 Anion Gap 4 L BUN 21 H Creatinine 0.90 Estim Creat Clear Calc 46.79 Est GFR (MDRD) Af Amer 77 Est GFR (MDRD) Non-Af 64 BUN/Creatinine Ratio 23.3 H Glucose 110 H Calcium 10.3 H Total Bilirubin 0.40 AST 20 ALT 23 Alkaline Phosphatase 61 Total Protein 6.9 Albumin 3.5 Globulin 3.4 Albumin/Globulin Ratio 1.0 Radiography Diagnostic Testing: Clinical Impression(s) from Imaging Studies Abdomen/Pelvis CT 01/25/24 18:06 IMPRESSION: Punctate left renal stone. Small hiatal hernia. Colonic diverticulosis. Fatty density in the inguinal canals. Electronically Signed: Ernie Alvarado DO at 19:41 EDT , Discharge Plan Triage Chief Complaint: GI Bleed ED Provider: Avery Webb Dx/Rx/DC Orders Clinical Impression: External hemorrhoid, bleeding, petroleum terminal plant operator (current) use of anticoagulants Instructions: Treating Hemorrhoids: Self-Care, ED Hemorrhoids, ED Lower GI Bleeding (Stable) Prescriptions: New hydrocortisone [Anusol-HC] 2.5 % cream with perineal applicator 1 applic [place] DAILY PRN (Reason: hemorrhoids) Qty: 30 0RF No Action pravastatin 40 mg tablet 40 mg PO QHS metoprolol tartrate 25 mg Tablet 25 mg PO BID 30 Days Qty: 60 0RF acetaminophen 500 mg Tablet 1,000 mg PO Q8 PRN (Reason: fever or pain) Primary Care Provider: Joel Casey Referrals: Joel Casey MD [Primary Care Provider] - 3-5 Days if not improving Activity Restrictions/Additional Instructions: Hold your blood thinner/Xarelto for the next 2 to 3 days. You should restart it once your bleeding hemorrhoid has resolved. Return with increased bleeding, new or worsening symptoms. Print Language: Armenian Disposition Disposition: Home, Self Care
--- NOTE | 2024-01-25 18:06 | CT_ITS ---
STUDY: CT ABDOMEN AND PELVIS WITH CONTRAST REASON FOR EXAM: Female, 78 years old. Rectal bleeding RADIATION DOSAGE (If Supplied By Facility): CTDIvol = ( 11.44 ) mGy, DLP = ( 561.70 ) mGycm TECHNIQUE: Transaxial images were obtained from the dome of the diaphragm to the symphysis pubis without oral contrast. IV 100mL Isovue-300 was administered. Sagittal and coronal images were reconstructed. Individualized dose optimization techniques were used for this CT. COMPARISON: None. FINDINGS: The visualized lung bases are unremarkable. The visualized portions of the heart are within normal limits. Normal liver. Nonvisualization of the gallbladder. No dilatation of the extrahepatic biliary system. Normal spleen. Normal pancreas. Normal bilateral adrenal glands. Normal right kidney. Punctate lower pole stone in the left kidney. Hiatal hernia. Normal small intestine. Diverticulosis of the colon. The appendix is not visualized. Normal abdominal aorta. Normal inferior vena cava. Normal retroperitoneum. Normal urinary bladder. Fatty density in the inguinal canals. Normal abdominal wall. Normal osseous structures. CT/Abdomen/Pelvis W IV Cont ONLY IMPRESSION: Punctate left renal stone. Small hiatal hernia. Colonic diverticulosis. Fatty density in the inguinal canals. Electronically Signed: Ernie Alvarado DO at 19:41 EDT ,
[2024-01-25 18:38] LABS: Absolute Lymphocyte Count 2.26 X10^3/uL (0.83-4.51); Absolute Neutrophil Count 3.5 X10^3/uL (2.0-7.7); Basophil# 0.05 X10^3/uL; Basophil% 0.7 % (0-1); Eosinophil# 0.18 X10^3/uL; Eosinophils% 2.7 % (0-5); Hematocrit 38.2 % (37-47); Hemoglobin 12.3 g/dL (12.0-15.0); Lymphocyte # 2.26 X10^3/ul (0.83-4.51); Lymphocyte % 33.6 % (19-41); Mean Corp Hgb Conc 32.2 g/dL (32-36); Mean Corpuscular Hgb 31.1 pg (27.0-32.0); Mean Corpuscular Volume 96.5 fL (81-99); Mean Platelet Vol. 10.6 fl (6.2-12.0); Monocyte# 0.68 X10^3/uL; Monocyte% 10.1 % (0-10); NRBC Flagged by Analyzer 0 % (0-5); Neutrophil # 3.54 X10^3/uL (2.7-7.7); Neutrophil % 52.8 % (47-70); Platelet Count 212 K/mm3 (150-450); RBC Distribution Width SD 46.2 fl (35.1-43.9); Red Blood Count 3.96 M/mm3 (4.2-5.4); White Blood Count 6.7 K/mm3 (4.4-11.0)
[2024-01-25] MEDS: 0.9% Normal Saline (1000mL) 1,000 ML 999 ML IV (18:48)
[2024-01-25 18:49] VITALS: BP 152/65; PULSE 58
[2024-01-25 18:55] LABS: AST(SGOT) 20 U/L (15-37); Alanine Aminotransfer ALT/SGPT 23 U/L (13-56); Albumin, Serum 3.5 g/dL (3.2-5.0); Alkaline Phosphatase 61 U/L (45-117); Anion Gap 4 (5-15); BUN 21 mg/dL (7-18); BUN/Creat Ratio 23.3 RATIO (10-20); Calcium,Total 10.3 mg/dL (8.5-10.1); Chloride 106 mmol/L (98-107); EST Glomerular Filtration Rate 64 mL/min (>60); Est Glom Filt Rate - Afr Amer 77 mL/min (>60); Estimated Creatinine Clearance 46.79 ml/min; Globulin 3.4 g/dL (2.2-4.2); Glucose 110 mg/dL (74-106); Potassium 3.9 mmol/L (3.5-5.1); Protein, Total 6.9 g/dL (6.4-8.2); Sodium Level 139 mmol/L (136-145)
== END 2024-01-25 20:35 | disposition home or self-care (01) ==
PROVIDERS: Emergency Provider Emergency Medicine; PCP Family Medicine; Visit Provider Emergency Medicine
DX: K64.8 Other hemorrhoids (principal); I48.91 Unspecified atrial fibrillation; I10 Essential (primary) hypertension; Z79.01 Long term (current) use of anticoagulants; Z79.899 Other long term (current) drug therapy
CPT/HCPCS: 46600; 74177; 80053; 85025; 96360; 99283; J7030; Q9967; A4216

== ENCOUNTER → 2024-01-28 | Outpatient (CLI) | payer MEDICARE, SELFPAY ==
--- NOTE | 2024-01-28 12:02 | EKG12_ITS ---
Test Reason : MEDICATION CHECK Blood Pressure : / mmHG Vent. Rate : 069 BPM Atrial Rate : 069 BPM P-R Int : 180 ms QRS Dur : 076 ms QT Int : 408 ms P-R-T Axes : 067 -11 010 degrees QTc Int : 437 ms Normal sinus rhythm Normal ECG Confirmed by Lazaro Beach ([id number]), editor department MARINA GILL ([id number]) on 01/29/2024 6:03:45 AM Referred By: Ayanna Rankin Confirmed By:Lazaro Beach
== END | disposition home or self-care (01) ==
PROVIDERS: PCP Family Medicine; Referring Provider Nurse Practitioner Family; Visit Provider Nurse Practitioner Family
DX: I48.0 Paroxysmal atrial fibrillation (principal)
CPT/HCPCS: 93005

== ENCOUNTER → 2024-02-11 | Outpatient (CLI) | payer MEDICARE, SELFPAY ==
--- NOTE | 2024-02-11 12:06 | EKG12_ITS ---
Test Reason : WEEKLY EKG/ORTHO BP Blood Pressure : / mmHG Vent. Rate : 063 BPM Atrial Rate : 063 BPM P-R Int : 180 ms QRS Dur : 078 ms QT Int : 428 ms P-R-T Axes : 060 000 024 degrees QTc Int : 437 ms Normal sinus rhythm Normal ECG When compared with ECG of 28-JAN-2024 12:11, No significant change was found Confirmed by CHUNG ZENG, CALIXTO ([id number]), newspaper editor MARINA GILL ([id number]) on 02/12/2024 5:57:24 AM Referred By: Ayanna Rankin Confirmed By:CALIXTO WILKES MD
== END | disposition home or self-care (01) ==
LOC: PSN 12:05
PROVIDERS: PCP Family Medicine; Referring Provider Nurse Practitioner Family; Visit Provider Nurse Practitioner Family
DX: I48.0 Paroxysmal atrial fibrillation (principal)
CPT/HCPCS: 93005

== ENCOUNTER 2024-09-08 21:37 | Emergency (ER) | payer MEDICARE, SELFPAY ==
[2024-09-08] VITALS (9 sets, daily range): BP systolic 144–214; BP diastolic 77–110; PULSE 54–63; RESP 16–18; TEMP 36.5–36.8; O2SAT 95–98; BMI 32.7
--- NOTE | 2024-09-08 22:09 | RAD_ITS ---
PROCEDURE: CHEST 1 VIEW (PORTABLE) 09/08/2024 REASON FOR EXAM: STROKE TECHNIQUE: Frontal view of the chest. COMPARISON: 12/26/2023 FINDINGS: Hardware: None Heart: Cardiac and mediastinal contours are stable. Lungs: No focal consolidation. No pneumothorax. No pleural effusion. Bones: The bones are unremarkable. Other: RAD/Chest 1 View (Portable) IMPRESSION: No Acute Findings. Reading Location: [facility]
[2024-09-08 22:26] LABS: Bedside Glucose 148 mg/dL (74-106)
[2024-09-08 22:26] LABS: Absolute Lymphocyte Count 2.67 X10^3/uL (0.83-4.51); Absolute Neutrophil Count 3.7 X10^3/uL (2.0-7.7); Basophil# 0.05 X10^3/uL; Basophil% 0.7 % (0-1); Eosinophil# 0.16 X10^3/uL; Eosinophils% 2.2 % (0-5); Hematocrit 38.7 % (37-47); Hemoglobin 12.9 g/dL (12.0-15.0); Lymphocyte # 2.67 X10^3/ul (0.83-4.51); Lymphocyte % 36.7 % (19-41); Mean Corp Hgb Conc 33.3 g/dL (32-36); Mean Corpuscular Hgb 31.2 pg (27.0-32.0); Mean Corpuscular Volume 93.5 fL (81-99); Mean Platelet Vol. 10.7 fl (6.2-12.0); Monocyte# 0.66 X10^3/uL; Monocyte% 9.1 % (0-10); NRBC Flagged by Analyzer 0 % (0-5); Neutrophil # 3.71 X10^3/uL (2.7-7.7); Platelet Count 200 K/mm3 (150-450); RBC Distribution Width CV 12.7 % (11.6-14.6); RBC Distribution Width SD 43.4 fl (35.1-43.9); Red Blood Count 4.14 M/mm3 (4.2-5.4); White Blood Count 7.3 K/mm3 (4.4-11.0)
[2024-09-08 22:37] LABS: International Normalized Ratio 2.2
[2024-09-08 22:38] LABS: Partial Thromboplast Time 49.2 Seconds (24.1-36.2)
[2024-09-08 22:40] LABS: Anion Gap 10 (5-15); BUN 16 mg/dL (4-19); BUN/Creat Ratio 20.7 RATIO (10-20); Calcium,Total 9.7 mg/dL (7.6-11.0); Carbon Dioxide 24.5 mmol/L (21.0-32.0); Chloride 103 mmol/L (98-108); Creatinine, Serum 0.78 mg/dL (0.70-1.20); EST Glomerular Filtration Rate 76 (>60); Estimated Creatinine Clearance 52.31 ml/min (50-250); Glucose 129 mg/dL (70-99); Potassium 4.1 mmol/L (3.3-5.1); Sodium Level 137 mmol/L (133-145)
[2024-09-08] MEDS: hydrALAZINE 20 MG/ML Vial 10 MG IV (23:01)
--- NOTE | 2024-09-08 23:32 | EDS_ITS ---
HPI History of Present Illness Chief Complaint: General Illness Informant: patient and family Narrative Narrative: Patient is an 79-year-old female with past medical history of hypertension hyperlipidemia paroxysmal atrial fibrillation currently on Eliquis. She states earlier today she began to feel like her heart was racing and she was short of breath. She states she checked her blood pressure at that time and it was elevated approximately 190 systolically. She states that she was unsure of why her blood pressure has spiked as it was typically under control and with her sensations of shortness of breath and dizziness presents to the ER for evaluation. She denies any headache associated with this she denies any fevers chills nausea vomiting diarrhea dysuria. She states that she has been taking her medications as directed and denies any excessive stimulant use or illicit drug use. 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 HTN (hypertension) Diabetes Home Medications ?Medication ?Instructions ?Recorded ?Last Taken ?Type pravastatin 40 mg tablet 40 mg PO QHS cholesterol Unknown History metoprolol tartrate 25 mg tablet 25 mg PO BID 30 days #60 tabs 12/23/23 Unknown Rx acetaminophen 500 mg tablet 1,000 mg PO Q8 PRN fever o r pain 12/26/23 Unknown History hydrocortisone 2.5 % topical cream 1 applic MT DAILY P RN hemorrhoids 01/25/24 Unknown Rx with perineal applicator #30 grams (Anusol-HC) dofetilide 125 mcg capsule 375 mcg PO Q12.TCU 09/08/24 Unknown History levothyroxine 50 mcg tablet 50 mcg PO DAILY 09/08/24 U nknown History lisinopril 40 mg tablet 40 mg PO DAILY 09/08/24 Unkn own History lisinopril 5 mg tablet PO 09/08/24 Unknown History magnesium L-lactate 84 mg 252 mg PO DAILY 09/08/24 Unk nown History tablet,extended release rivaroxaban 20 mg tablet (Xarelto) 20 mg PO QPM Unknown History Allergy/AdvReac Type Severity Reaction Status Date / Time No Known Allergies Allergy Verified 09/08/24 21:38 Family History no significant family his Surgical History Hx of cholecystectomy H/O: hysterectomy Social History Smoking Status: Never smoker ROS ROS ED Constitutional Constitutional ED: Denies chills or fever(s) Eyes Eyes: Denies change in vision ENT ENT ED: Denies sore throat Cardiovascular Cardiovascular: Reports palpitations and racing heartbeat; Denies chest pain Respiratory/Chest Respiratory/Chest: Reports dyspnea; Denies cough Gastrointestinal Gastrointestinal: Denies abdominal pain, diarrhea, nausea or vomiting Genitourinary Genitourinary ED: Denies dysuria Musculoskeletal Musculoskeletal: Denies myalgias Integumentary Denies rash Neurologic Neurologic: Reports other Details: Positive dizziness ; Denies headache(s) Hematologic/Lymphatic Hematologic/Lymphatic: Reports easy bleeding and easy bruising EXAM Physical Exam Const Vital Signs: 09/08/24 21:38 09/08/24 21:50 09/08/24 21:58 Temperature 97.7 F L Temperature Source Oral Pulse Rate 61 63 Respiratory Rate 18 18 Respiratory Effort Normal Respiratory Pattern Normal Blood Pressure 214/86 H 200/79 H Blood Pressure Mean 128 119 Pulse Ox 98 95 Oxygen Delivery Method Room Air Room Air 09/08/24 22:00 09/08/24 22:20 09/08/24 22:30 Temperature Temperature Source Pulse Rate 54 L 61 Respiratory Rate 16 17 Respiratory Effort Respiratory Pattern Blood Pressure 176/90 H 162/104 H Blood Pressure Mean 118 123 Pulse Ox 98 95 95 Oxygen Delivery Method Room Air Room Air Room Air 09/08/24 22:37 09/08/24 23:00 09/08/24 23:21 Temperature Temperature Source Pulse Rate 59 L 55 L 59 L Respiratory Rate 17 16 16 Respiratory Effort Respiratory Pattern Blood Pressure 162/104 H 151/110 H 144/77 H Blood Pressure Mean 123 123 99 Pulse Ox 97 95 97 Oxygen Delivery Method Room Air Room Air Nasal Cannula 09/08/24 23:44 Temperature 98.3 F Temperature Source Pulse Rate 61 Respiratory Rate 16 Respiratory Effort Respiratory Pattern Blood Pressure 148/86 H Blood Pressure Mean 106 Pulse Ox 96 Oxygen Delivery Method Positive well nourished and well developed General Appearance ED: well developed; Negative for pallor HEENT HEENT Narrative: Normocephalic atraumatic Eyes PERRL and EOMs intact bilaterally General Eye ED: Negative for scleral icterus Neck supple Neck Narrative: No nuchal rigidity or meningeal signs noted Resp normal respiratory effort and clear to auscultation bilaterally Cardio regular rate and regular rhythm Rate: other Other Details: Heart is regular rate and rhythm Radial and carotid pulses are equal and symmetric No carotid bruit noted GI normal to inspection, nondistended, normoactive bowel sounds, non-tender, non- distended and no masses GI Narrative: No voluntary guarding or rigidity or pulsatile mass Auscultation: normoactive bowel sounds Palpation: soft Extremity normal to inspection Extremity Narrative: No asymmetric edema no pitting edema negative Homans' sign bilaterally Neuro oriented x3, CN's II-XII intact bilaterally and no sensory deficits noted Neuro Narrative: GCS of 15 Cranial nerves II through XII are grossly intact there are no focal neurologic deficits No pronator drift no dysmetria no truncal ataxia NIH stroke scale score of 0 Sensorium / Orientation: alert Motor Exam: strength 5/5 throughout Psych mental status grossly normal Skin no rashes or lesions noted General Skin Exam: Negative for jaundice or pallor MDM MDM MDM Narrative Medical decision making narrative: Patient arrived to the ER hypertensive with a systolic value of 214 which does correlate with what she was reading at home. She also reported that her heart was racing and she felt short of breath. There is concern for return of paroxysmal atrial fibrillation versus acute kidney injury versus electrolyte abnormality. We discussed head CT to check for potential bleed based on her use of Xarelto and the spontaneous hypertension. However she denies any headache and states that her blood pressure has slowly come down and she is feeling overall normal at this time. Therefore she does not want a head CT obtained. Blood work revealed no signs of endorgan damage. After 1 dose of hydralazine the blood pressure reduced to 148/86. The patient states her symptoms have completely resolved with resolution of her blood pressure. Therefore at this time with a normal neurologic exam no signs of endorgan damage and resolution of symptoms with improvement of her hypertension I do not feel there is need for further workup or admission and she is otherwise safe for discharge. History & Record Review Discussion w/independent historian: Patient and Family Lab Data Attestation: I reviewed the patient's lab results. Labs: Laboratory Results - last 24 hr 09/08/24 09/08/24 22:07 22:11 WBC 7.3 RBC 4.14 L Hgb 12.9 Hct 38.7 MCV 93.5 MCH 31.2 MCHC 33.3 RDW Std Deviation 43.4 RDW Coeff of Faisal 12.7 Plt Count 200 MPV 10.7 Immature Gran % (Auto) 0.300 Neut % (Auto) 51.0 Lymph % (Auto) 36.7 Zavala % (Auto) 9.1 Eos % (Auto) 2.2 Baso % (Auto) 0.7 Absolute Neuts (auto) 3.7 Absolute Lymphs (auto) 2.67 Nucleated RBC % 0 PT 25.0 H INR 2.2 APTT 49.2 H Sodium 137 Potassium 4.1 Chloride 103 Carbon Dioxide 24.5 Anion Gap 10 BUN 16 Creatinine 0.78 Estim Creat Clear Calc 52.31 Est GFR (MDRD) Non-Af 76 BUN/Creatinine Ratio 20.7 H Glucose 129 H Calcium 9.7 POC Glucose 148 H Radiography Diagnostic Testing: Clinical Impression(s) from Imaging Studies Chest X-Ray 09/08/24 22:09 IMPRESSION: No Acute Findings. Reading [facility] Chest x-ray as interpreted by the emergency medicine physician reveals no acute infiltrate pneumothorax or pleural effusion Discharge Plan Triage Chief Complaint: General Illness ED Provider: Gianni Haji Dx/Rx/DC Orders Clinical Impression: Accelerated hypertension, Paroxysmal atrial fibrillation, Current use of shelter anticoagulation, Hyperlipidemia Instructions: ED Hypertension, Established Prescriptions: No Action pravastatin 40 mg tablet 40 mg PO QHS metoprolol tartrate 25 mg Tablet 25 mg PO BID 30 Days Qty: 60 0RF acetaminophen 500 mg Tablet 1,000 mg PO Q8 PRN (Reason: fever or pain) hydrocortisone [Anusol-HC] 2.5 % cream with perineal applicator 1 applic MT DAILY PRN (Reason: hemorrhoids) Qty: 30 0RF dofetilide 125 mcg capsule 375 mcg PO Q12.TCU levothyroxine 50 mcg tablet 50 mcg PO DAILY lisinopril 5 mg tablet PO lisinopril 40 mg tablet 40 mg PO DAILY magnesium L-lactate 84 mg tablet extended release 252 mg PO DAILY Xarelto 20 mg tablet 20 mg PO QPM Primary Care Provider: Joel Casey Referrals: Joel Casey MD [Primary Care Provider] - Activity Restrictions/Additional Instructions: Please continue all of your home medications as directed by your doctor and return to the ER should you have any further concerns Print Language: Tajik Disposition Disposition: Home, Self Care Discharge Date/Time: 09/08/24 23:45
== END 2024-09-08 23:45 | disposition home or self-care (01) ==
PROVIDERS: Emergency Provider Emergency Medicine; PCP Family Medicine; Visit Provider Emergency Medicine
DX: I10 Essential (primary) hypertension (principal); I48.0 Paroxysmal atrial fibrillation; E78.5 Hyperlipidemia, unspecified; Z79.01 Long term (current) use of anticoagulants; Z79.899 Other long term (current) drug therapy
CPT/HCPCS: 71045; 80048; 82962; 85025; 85610; 85730; 93005; 96374; 99283; A4216